=== PATIENT | female | born 1970 | race Hispanic/Latino ===

== ENCOUNTER → 2020-02-14 12:33 | Outpatient (CLI) | payer OTHER, SELFPAY ==
--- NOTE | 2020-02-14 13:00 | MRI_ITS ---
STUDY: MRI RIGHT SHOULDER REASON FOR EXAM: Female, 49 years old. RIGHT shoulder sprain, injury. Pain with movement TECHNIQUE: Standardized fat and water weighted pulse sequences were obtained in all 3 orthogonal planes. COMPARISON: None. FINDINGS: Moderate supraspinatus and infraspinatus tendinosis and peritendinitis as with a 1 x 1 cm full-thickness tear of the distal mid supraspinatus tendon proximal to the footprint. There is subscapularis tendinosis with tendon thickening, but without a demonstrated tendon tear. Normal teres minor tendon. Moderate volumetric or fatty atrophy of the supraspinatus muscle. Normal infraspinatus muscle. Normal subscapularis muscle. Normal teres minor muscle. Normal glenohumeral articulation. There is a cortical erosion at the insertion of the infraspinatus tendon. Normal biceps labral complex. There is tendinosis with thickening of the biceps tendon, but without a demonstrated tear. Normal labrum. Normal capsulo- ligamentous complex. Normal rotator interval. There is moderate osteoarthritis of the acromioclavicular articulations. There is a Type II morphology (curved), with a neutral orientation. There is no subacromial-subdeltoid bursal fluid. Normal visualized coracohumeral and coracoacromial ligaments. Normal quadrilateral space. Normal axillary space. Normal deltoid muscle. Normal trapezius muscle. MRI/Upper Ext Joint Only(Routine) IMPRESSION: Moderate supraspinatus and infraspinatus tendinosis and peritendinitis as with a 1 x 1 cm full-thickness tear of the distal mid supraspinatus tendon proximal to the footprint with moderate volumetric and fatty atrophy of the supraspinatus muscle. Electronically Signed: Robe Turner MD at 14:46 EDT Tel , Service support ,
== END ==
PROVIDERS: Referring Provider Family Medicine; Visit Provider Family Medicine
DX: S43.401A Unspecified sprain of right shoulder joint, initial encounter (principal); M65.811 Other synovitis and tenosynovitis, right shoulder
CPT/HCPCS: 73221

== ENCOUNTER → 2020-05-05 15:49 | Outpatient (CLI) | payer OTHER, SELFPAY ==
--- NOTE | 2020-05-05 15:50 | RAD_ITS ---
STUDY: X-RAY - RIGHT SHOULDER REASON FOR EXAM: Pain. TECHNIQUE: 4 view(s) of the shoulder. COMPARISON: MRI images 02/14/2020. FINDINGS: Normal glenohumeral articulation. There is acromioclavicular arthrosis. Normal acromion. Normal humeral head and visualized proximal humerus. There is a small focus of calcific tendinitis. Normal visualized pulmonary apex. RAD/Shoulder min 2 Views IMPRESSION: Small focus of calcific tendinitis. Acromioclavicular arthrosis. Electronically Signed: Jose Miguel Trivedi MD at 8:23 EDT Tel , Service support ,
== END ==
PROVIDERS: Referring Provider Orthopaedic Surgery; Visit Provider Orthopaedic Surgery
DX: S46.911A Strain of unspecified muscle, fascia and tendon at shoulder and upper arm level, right arm, initial encounter (principal); X58.XXXA Exposure to other specified factors, initial encounter; M19.011 Primary osteoarthritis, right shoulder
CPT/HCPCS: 73030

== ENCOUNTER 2020-10-21 05:43 | Day surgery (SDC) | payer OTHER, SELFPAY ==
[2020-10-21] VITALS (12 sets, daily range): BP systolic 110–126; BP diastolic 58–77; PULSE 56–82; RESP 16–18; TEMP 36.1–36.8; O2SAT 94–100; BMI 30.1
[2020-10-21] MEDS: Lactated Ringers 1,000 ML 100 ML IV (06:25)
[2020-10-21] MEDS: Cefazolin 2 GM in 0.9% Normal Saline 100 ML IV (07:34)
--- NOTE | 2020-10-21 07:41 | PCM.DC.ORTHO ---
Discharge Diet: No Restrictions - keep dressing intact, call with concerns, do not remove sling, follow up on monday with elias for dressing change and brace adjustment Discharge Activity: May Not Drive May shower in (days): 1 Ice area for (Minutes): 20 - Every hour while awake. Weight Bearing Status: Weight bearing as tolerated Keep extremity elevated above heart level: Operative Extremity Call your doctor if your incision/area has: Continuous Slow Oozing, Sudden Increased Bleeding, Increased Pain/ Swelling, Increased Redness, Foul Smelling Discharge Call your doctor if you observe: Fever of 101 or Higher, Coldness, Increased Pain, Numbness or Tingling, Change in Color, Calf discomfort Allergies/Adverse Reactions: Allergies No Known Allergies Allergy (Verified 10/21/20 06:07) Medications to take at Discharge Oxycodone [Oxyir] 5 mg PO Q4H PRN PRN 5 Days #60 tab 10/21/20 Zolpidem Tartrate [Ambien (Generic)] 5 mg PO QHS PRN PRN #14 tab 10/21/20 The following prescriptions were given: Zolpidem Tartrate [Ambien (Generic)] 5 mg PO QHS PRN PRN #14 tab PRN Reason: Insomnia Transmission Status: Received by [facility] Oxycodone [Oxyir] 5 mg PO Q4H PRN PRN 5 Days #60 tab PRN Reason: Pain Transmission Status: Received by [facility] Primary Care Physician: Care Physician,No Primary [Primary Care Provider] - Test Results: Test results from this visit will be discussed in further detail at your follow-up appointment, if applicable. Please Follow Up With: Richelle Anthony, DO - [phone]
--- NOTE | 2020-10-21 07:41 | PCM.OPRPT ---
Report of Operation Date of Procedure: 10/21/20 Pre-Operative Diagnosis: right shoulder rotator cuff tear, subacromial impingment syndrome, biceps tendinosis Post-Operative Diagnosis: same Surgery/Procedure Performed:: sars, rc repair, sad/acromioplasty, biceps debridement- subscap and supra associate professor of surgery: Vinod Galvan Type of Anesthesia:: General/Regional Anesthesiologist: Parminder Freeman Estimated Blood Loss (mL): min Fluids Replaced: see chart Description of Procedure: Preop note Patient is a 49-year-old female with continued pain of her right shoulder after an incident while she was trying to lift something. Failed conservative treatment options patient elected proceed with right shoulder arthroscopy. Indicated. Risk benefits and alternatives were discussed patient. Risk include but not limited to blood loss, blood clot, infection, neurovascular, failure procedure, loss of life and loss of limb. Patient is aware like to proceed with right shoulder arthroscopy repair as indicated. Rosie Galvan We discussed the current risk associated COVID-19. While it is understood that there is a community spread of COVID 19 the risk of helen COVID-19 while at [facility] is very low, however, the risk cannot be completely mitigated because of the community spread of the disease. We discussed in detail the risk of exposure to and or potential harm posed by the COVID-19 virus with having a surgery/procedure at this time versus the risk of delaying the surgery/procedure. Is not possible to know either the risk of delaying the surgery procedure or chance of getting an infection with perfect accuracy, but a joint decision was made to proceed at this time with a schedule surgery/procedure as indicated on the consent form. Patient was notified that we will need to comply with any screening or testing [facility] wishes to perform or that surgery may be delayed for any positive results. Operative note Patient seen and examined preoperative holding area. Right shoulder was marked. Patient brought to the operating placed supine on the operating table. Signed, anesthesia, antibiotics were administered. Right arm was prepped and draped in usual sterile technique after she was placed in beachchair positioning. Please note the senior living through beachchair position we did recheck her blood pressure which was stable throughout. All bony promises well-padded SCDs placed on her bilateral lower extremity We marked out our bony landmarks for portal placement the timeout was performed we then insufflated the glenohumeral joint for the posterior aspect had good return. We then used a low blade create our posterior portal. Began our diagnostic arthroscopy. The glenohumeral joint was intact. The subscap was torn off the top 1 cm leading edge. We then created anterior portal under direct visualization. We probed the biceps which was unstable was which was intact and its the biceps labral junction. There was some fraying at the insertion which was gently debrided back with a shaver. We then brought the biceps into the joint and there was no redness no streaking. We then able to visualize the rotator cuff tear which was a crescent-shaped U-shaped tear starting from the leading edge going posterior actually more of a mid body tear as the posterior aspect start with the lateral aspect of the rotator cuff at the rotator cuff footprint was intact. We then demarcated our lesser tuberosity to create placement for our swivel lock. We placed 2 fiber links through the tear of the subscap prior to that we did to gently debride back on the onset stable rotator cuff tear as well as debriding back the lesser tuberosity with a shaver and a bur to create a good bony bed for healing. After placing a 2 fiber links we then placed this down to a swivel lock that was placed in standard technique at the anatomic atomic subscap footprint. We then moved to the subacromial space. We then moved to the subacromial space. Created a lateral portal under direct visualization. She had extensive bursitis. A combination of shaver and ablator weeks we debrided back all the bursitis extending posterior especially laterally. We performed a gentle acromioplasty anterolateral as well. She had a quite stiff and it with an old questions tear again starting from the midportion of the supraspinatus and extending posteriorly. We did a couple of releases then were able to pull out below the level and then were able to mobilize it the cuff. Loaded well to marginal convergence suggested we did perform a couple marginal convergence sutures to lessen the tension of the repair. We then placed 3 bio composite's anchors on the medial bridge and then used these to further our medial convergence stitches and extending more anteriorly. After this we had good great footprint coverage potential slightly tensionless repair. We then irrigated the shoulder with copious amounts of sterile saline. Portals were closed with interrupted 4-0 nylon stitches and sterile dressings were applied. Patient taught procedure well no complication transferred recovery room in stable condition. Postoperative note Nonweightbearing right upper extremity Pharmacy has prescriptions Call with increased pain numbness tingling further issues arise Dragon disclaimer Discussed with daughter we will get pictures in 2 weeks This note was generated with [employer] dictation software. It may contain incorrect words, spelling, and punctuation that were not noted in checking the note before signing.
[2020-10-21] MEDS: Epinephrine (1 mg/ml) 1 MG/ML VIAL ×2 (08:07→09:30)
--- NOTE | 2020-10-21 10:00 | HP_ITS ---
I have re-examined the patient. There are no clinical changes since date of exam. Intake Intake Visit Reasons: right shoulder HPI right shoulder: Surgical H&P: Yes Details: Parts of this documentation were recorded by a scribe, this documentation accurately reflects the service provided and the decisions made by me, Dr. Richelle Anthony, DO 09/24/20 0943. KADI CALZADA is a 49 year old F here today for right shoulder. Her appointment is translated by Joao, # [id number]. Patient states that she does not have any pain although if she reaches backwards her pain increases. She has numbness which is bad and tries to stretch at night. She wakes with hand numbness into all of her fingers. If she tries to grab her phone, it drops onto her face. She is taking etodolac for pain.Her pain is over her posterior and superior shoulder. She has decreased shoulder range of motion due to pain. Ortho Exam Right Shoulder Skin/Wound: Yes CDI, No ecchymosis, No erythema, No swelling Testing: Positive Neer's, Speed's, TTP Biceps, Drop Arm, PROM-External Rotation at side 0-60, PROM-External Rotation at 90 0-60 and PROM-Forward Elevation 0- 180; negative Hawkin's, AROM-Forward Elevation 0-180, AROM-External Rotation at 90 0- 60 or AROM-External Rotation at side 0-60 SHOULDER: positive drop arm. neuro intact med, uln,rad nerves which is painful into shoulder Assessment & Plan Problems 1. Strain of muscle(s) and tendon(s) of the rotator cuff of right shoulder, initial encounter S46.011A 2. Biceps tendinitis on right M75.21 3. Sprain of right shoulder S43.401A 4. Infraspinatus tenosynovitis, right M65.811 Plan Explained the numbness into her hand is from her cervical spine or carpal tunnel. Explained that shoulder surgery will not help the numbness. this needs to be addressed at later date or by pcp. Reviewed the pre-operative plans with the patient. Risks and benefits of the procedure were fully explained, including but not limited to infection, neurovascular injury, continued pain, arthritis, stiffness, need for further surgery, re-injury, DVT, PE, general risks of anesthesia, and loss of limb or life. The patient understands all the risks and does wish to proceed with written consent. She will be in a sling for 6 weeks. All questions answered with the help of the educational interpreter. We discussed the current risk associated COVID-19. While it is understood that there is a community spread of COVID 19 the risk of helen COVID-19 while at [facility] is very low, however, the risk cannot be completely mitigated because of the community spread of the disease. We discussed in detail the risk of exposure to and or potential harm posed by the COVID-19 virus with having a surgery/procedure at this time versus the risk of delaying the surgery/procedure. Is not possible to know either the risk of delaying the surgery procedure or chance of getting an infection with perfect accuracy, but a joint decision was made to proceed at this time with a schedule surgery/procedure as indicated on the consent form. Patient was notified that we will need to comply with any screening or testing [facility] wishes to perform or that surgery may be delayed for any positive results. Follow up for 2 week post op appointment or sooner if pain, swelling, numbness or associated symptoms, or concerns develop. All questions answered. Patient in agreement of plan. Coding Level of Care Code Off vis,est,level 4 Diagnoses Strain of muscle(s) and tendon(s) of the rotator cuff of right shoulder, initial encounter S46.011A Biceps tendinitis on right M75.21 Sprain of right shoulder S43.401A Infraspinatus tenosynovitis, right M65.811 COVID (Procedure Consent) Procedure Criteria Procedure Criteria: Yes Elective The surgeon/proceduralist and patient have discussed in detail the risk of exposure to and/or potential harm posed by the COVID-19 virus with having a surgery/procedure at this time versus the risk of? delaying the surgery/procedure. It is not possible to know either the risk of delaying the surgery or procedure or chance of getting an infection with perfect accuracy, but a joint decision was made between the patient and the surgeon/proceduralist ?to proceed at this time with the scheduled surgery/procedure as indicated on the consent form.
[2020-10-21] MEDS: Mupirocin Ointment 22gm Tube 1 APPLIC (10:34)
--- NOTE | 2020-10-21 11:26 | EKG12_ITS ---
Test Reason : POST OP Blood Pressure : / mmHG Vent. Rate : 054 BPM Atrial Rate : 054 BPM P-R Int : 166 ms QRS Dur : 080 ms QT Int : 530 ms P-R-T Axes : 003 024 035 degrees QTc Int : 502 ms Sinus bradycardia Prolonged QT Abnormal ECG Confirmed by ROBERT ESQUIVEL, AN ([id number]), purchasing expeditor HEIDY MURPHY ([id number]) on 10/29/2020 9:16:25 AM Referred By: Richelle Anthony Confirmed By:AN JONES MD
[2020-10-21] MEDS: HYDROcodone Bitartrate/Apap 5/325 Tablet PO (13:45)
== END 2020-10-21 14:20 | disposition home or self-care (01) ==
LOC: SDC 05:44 → AC 05:45
PROVIDERS: Referring Provider Orthopaedic Surgery; Visit Provider Orthopaedic Surgery
PROC: (CPT 29827; principal; 2020-10-21 07:10)
DX: M75.101 Unspecified rotator cuff tear or rupture of right shoulder, not specified as traumatic (principal); M75.41 Impingement syndrome of right shoulder; M75.21 Bicipital tendinitis, right shoulder; S43.401A Unspecified sprain of right shoulder joint, initial encounter; M65.811 Other synovitis and tenosynovitis, right shoulder; J45.909 Unspecified asthma, uncomplicated; Z79.899 Other long term (current) drug therapy
CPT/HCPCS: 29822; 29826; 29827; 64415; 87426; 93005; C9803; J7120; C1713; J2405

== ENCOUNTER 2021-05-25 10:30 | Outpatient (RCR) | payer OTHER, SELFPAY ==
--- NOTE | 2020-12-14 14:55 | HP.PTEVAL_ITS ---
Patient's Visit Information KADI CALZADA is a 50 year old F referred to Physical Therapy by Dr. Richelle Anthony DO with a diagnosis of R shoulder RC strain s/p repair 10/21. Date of Evaluation: 12/14/20 Physical Therapist: Wilson Llamas, DPT, OCS, CSCS - Visit Plan Frequency: 2x /Week Duration: 4-6 Weeks Plan: 2x/week for 4 weeks for pool therapy per order. Please work on AAROM R shoulder to AROM as tolerated, may need some passive. Needs to relax R UE. Postural correction. Pt is very protective. Also, she does nto speak or understand Kosovan, will have a friend who is an bleach chlorinator with her adn can follow visual prompts however may require ipad clam shucking machine tender at times. - Subjective Friend with her and interprets. R shoulder hurts. 07/16 many times. Insidious onset. Sore from surgery 10/21 RCR. Doing pendulum. Pain keeps her up at night. Wakes her up. Not working , no job to go back to as she was treminated. Hard to dress self but can use L UE and it takes increased time. Spends day cleaning the house. Can't do it with R UE. - Pain R shoulder. Pain Intensity (Out of 10): 9 Pain Intensity Range: 1, 9 - Objective Walks into therapy with R arm protected adn scapula elevated but can relax to a good position when cued.. Incisions are visible adn have healed well withotu excessive scar tissue. Posture is forward head and foreward scapula. L UE aROM is normal and WFLa dn strength at 4-/5. R UE AROM flexion is 85 and abduction is 80 and limited by pain, ext rotation 40 adn IR to GT adn limtied by pain. PROM R UE 105 and abd is 92 and ext rotation is 45 adn IR 40 all limited by pain without an endfeel today. Strength in R shoulder not tested, elbow is 3+/5 with apin, wrist is 4-/5. Pt is hesitant to move it overall but can get to about 130 degrees with supine stick flexion by the time I show it to her at home. - Goals Goal 1:: Pt sleep withotu pain Goal Time Frame: 2-4 Weeks Goal 2:: AROM 145 flexion and 50 ext rotation and PSIS IR without pain Goal Time Frame: 2-4 Weeks Goal 3:: LT goals: Pt move arm to get dressed and vaccuum at home without increased pain. Goal Time Frame: 6-8 Weeks Goal 4:: Pt feel 90% back to normal Goal Time Frame: 6-8 Weeks - Rehabilitation Potential Physical Therapy Diagnosis: R shoulder pain and diminished motion. Rehabilitation Potential: Fair - Anticipated Interventions Patient/Client Instruction: Educate patient on: Condition, Plan of Care For the Purpose of:: To decrease pain, To increase ROM, To improve muscle performance and motor function Therapeutic Exercise to Include: Strength training, Postural training, In an aquatic setting, Passive ROM, Active ROM For the Purpose of:: To decrease pain, To improve muscle performance and motor function, To increase tolerance to activity/condition/position, To improve ability of physical actions for home/community/work/leisure Thank you for the opportunity to evaluate your patient. For Medicare and Medicare HMO plans, please review the plan of care and approve it. It will need to be FAXED BACK to us at [phone] for Medicare purposes. For Medicare only, by signing this I certify the plan of care. Please let me know if there are questions or concerns regarding this plan of care. Physician Signature: Date:
--- NOTE | 2021-01-14 13:55 | HP.PTREVAL_ITS ---
Dr. Richelle Anthony, DO, It has been my pleasure to treat KADI CALZADA over the last 10 visits for R shoulder RC strain s/p repair 10/21. Please see the progress note below for an update on the physical therapy plan of care! Subjective: Got pool workout in today. 7/10 pain today and most days. Sleep is interrupted at times due to pain. Is motsly comfortable 2/10 at rest. Modified dressing by herself. Chores are getting done but slow and painful. Objective/Function: AROM flexion 120 PROM 145 pain. abduction 140. ext rotation 40 and IR to side only. Strength is limited by pain in flexion, abd and ext rotation at 4-, and IR 4, bi and tri 4. Significantly better ROM but coming adriana slowly. Plan Plan: 2x/week for 4-6 weeks for. PROM,AROM flexion, abd, IR, ER adn strength of R shoulder and scap. Progress of HEP. Pt speaks very limited Turkmen but follows directions well, Rich son with her to interpret today. Continued therapy appropriate and fair prognosis. spoke to doctor office regarding more therapy. Goals Goal 1:: Pt sleep withotu pain Goal Time Frame: 2-4 Weeks Goal Progress: Progressing Goal 2:: AROM 145 flexion and 50 ext rotation and PSIS IR without pain Goal Time Frame: 2-4 Weeks Goal Progress: Progressing Goal 3:: LT goals: Pt move arm to get dressed and vaccuum at home without increased pain. Goal Time Frame: 6-8 Weeks Goal Progress: Progressing Goal 4:: Pt feel 90% back to normal Goal Time Frame: 6-8 Weeks Goal Progress: 50 Anticipated Interventions Patient/Client Instruction: Educate patient on: Condition, Plan of Care For the Purpose of:: To decrease pain, To increase ROM, To improve muscle performance and motor function Therapeutic Exercise to Include: Strength training, Postural training, In an aquatic setting, Passive ROM, Active ROM For the Purpose of:: To decrease pain, To improve muscle performance and motor function, To increase tolerance to activity/condition/position, To improve ability of physical actions for home/community/work/leisure Please do not hesitate to contact me at [phone] by phone or if you have questions or concerns regarding this new plan of care! Sincerely, Wilson Llamas, DPT, OCS, CSCS
--- NOTE | 2021-03-05 10:52 | HP.PTREVAL ---
Dr. Richelle Anthony, DO, It has been my pleasure to treat KADI CALZADA over the last 20 visits for R shoulder RC strain s/p repair 10/21. Please see the progress note below for an update on the physical therapy plan of care! Subjective: No pain at rest. sleeping well. Reaching out in front OK, reaching to side is still painful trasniently. Objective/Function: 142 AROM flexion and 110 abduction, pain at end. Ext rotation is 40 pain at end, IR is 25 at 70 abd and PSIS behind back. This is her biggest problem with function. Pain is much better in front of her and sleeping is OK. Progression is obvious but slow. Appropriate to continue therapy toward new goal with fair prognosis. Plan Plan: 2x/week x 4 weeks to work on IR stretching, continue ROM and progression of strength to doctor appointment. Needs apporval Goals Goal 1:: Pt sleep withotu pain Goal Time Frame: 2-4 Weeks Goal Progress: Goal Met Goal 2:: AROM 145 flexion and 50 ext rotation and PSIS IR without pain Goal Time Frame: 2-4 Weeks Goal Progress: Goal Met Goal 3:: LT goals: Pt move arm to get dressed and vaccuum at home without increased pain. Goal Time Frame: 6-8 Weeks Goal Progress: yes but hurts.7/10 Goal 4:: Pt feel 90% back to normal Goal Time Frame: 6-8 Weeks Goal Progress: 70 Goal 5:: ?Get hand behind back to tuck in shirt and walk back without pain greater than 3/10 Goal Time Frame: 2-4 Weeks Goal Progress: NEW GOAL Anticipated Interventions Patient/Client Instruction: Educate patient on: Condition, Plan of Care For the Purpose of:: To decrease pain, To increase ROM, To improve muscle performance and motor function Therapeutic Exercise to Include: Strength training, Postural training, In an aquatic setting, Passive ROM, Active ROM For the Purpose of:: To decrease pain, To improve muscle performance and motor function, To increase tolerance to activity/condition/position, To improve ability of physical actions for home/community/work/leisure Please do not hesitate to contact me at [phone] by phone or if you have questions or concerns regarding this new plan of care! Sincerely, Wilson Llamas, DPT, OCS, CSCS
--- NOTE | 2021-04-15 17:25 | HP.PT.NRP ---
KADI CALZADA was seen in my office for initial evaluation on 12/14/20. The following Plan of Care was established for this patient: Initial Frequency: 2x /Week Initial Duration: 4-6 Weeks Patient/Client Instruction: Educate patient on: Condition, Plan of Care For the Purpose of:: To decrease pain, To increase ROM, To improve muscle performance and motor function Therapeutic Exercise to Include: Strength training, Postural training, In an aquatic setting, Passive ROM, Active ROM For the Purpose of:: To decrease pain, To improve muscle performance and motor function, To increase tolerance to activity/condition/position, To improve ability of physical actions for home/community/work/leisure This patient was last seen in our office 03/05/21. Pertinent comments regarding their Physical therapy will appear below: Pt seen 20 visits of POC and was 70% better. She was to cotninue but did not schedule or attend any further visits. At this time, her approval has run out and she has been noncompliant with attendance. I will discontinue her as it has been over 4 weeks. At this point I will be discontinuing this patient from physical therapy. I would be happy to see this patient again in the future if found appropriate by the physician. Thank you! Wilson Llamas, DPT, OCS, CSCS
--- NOTE | 2021-04-22 10:47 | HP.PTREVAL ---
Dr. Richelle Anthony, DO, It has been my pleasure to treat KADI CALZADA over the last 21 visits for R shoulder RC strain s/p repair 10/21. Please see the progress note below for an update on the physical therapy plan of care! Subjective: A little pain. Objective/Function: 145 flexion AROM with min pain. 150 abd with min pain. 45 ext rotation with mod pain. IR to PSIS mod+ pain. strength: flex 4- adn abd 4- both with mod pain, IR/4 slight pain, ER 4 with slight pain. Very functional ROM and strength today, still painful. Overall patient is doing wella dn continues to improve. Main problems are end range IR stiffness and lacking motion and some pain/weakness at full elevation. Appropriate to cotninue with fair prognosis. Plan Plan: Pt has recently returned to doctor and recommended back for PT so her chart is reopened after the recent d/c due to nonattendance. 2x/week for 3 weeks for... elevated strengthening, IR ROM and mobs, progression of HEP. Ice as needed. Communicated with [employer] [facility] alberto today. Goals Goal 1:: Pt sleep withotu pain Goal Time Frame: 2-4 Weeks Goal Progress: Goal Met Goal 2:: AROM 145 flexion and 50 ext rotation and PSIS IR without pain Goal Time Frame: 2-4 Weeks Goal Progress: Goal Met Goal 3:: LT goals: Pt move arm to get dressed and vaccuum at home without increased pain. Goal Time Frame: 6-8 Weeks Goal Progress: yes but hurts.7/10 Goal 4:: Pt feel 90% back to normal Goal Time Frame: 6-8 Weeks Goal Progress: 70 Goal 5:: ?Get hand behind back to tuck in shirt and walk back without pain greater than 3/10 Goal Time Frame: 2-4 Weeks Goal Progress: NEW GOAL Anticipated Interventions Patient/Client Instruction: Educate patient on: Condition, Plan of Care For the Purpose of:: To decrease pain, To increase ROM, To improve muscle performance and motor function Therapeutic Exercise to Include: Strength training, Postural training, In an aquatic setting, Passive ROM, Active ROM For the Purpose of:: To decrease pain, To improve muscle performance and motor function, To increase tolerance to activity/condition/position, To improve ability of physical actions for home/community/work/leisure Please do not hesitate to contact me at [phone] by phone or if you have questions or concerns regarding this new plan of care! Sincerely, Wilson Llamas, DPT, OCS, CSCS
--- NOTE | 2021-05-25 11:21 | HP.PTDCSUM_ITS ---
It has been my pleasure to treat KADI CALZADA referred by Dr. Richelle Anthony DO, with the diagnosis of R shoulder RC strain s/p repair 10/21 for a total of 25 visit(s). Discharge Date: 05/25/21 Please see the following information for a summary of their discharge status. Subjective: Saw doctor yesterday and put on methylprednisolone. Hardto get it behing her, better overhead. Sleep is OK. 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 Hard to get arm behind her and the pain ivloved with this is what is left. Deos not think she needs more visits. R shoulder. Pain Intensity (Out of 10): 6 % Improvement: 75 Objective/Function: 150 AROM flexion and abduction. 50 eext rotation, PSIS IR aROM. Pain with putting arm behind her. strength is 4/5 in flexiona nd abd and IR, 4- ER. Mild pain with elevation resisted. Overall improved adn does not wish to have further therapy but to wait and see how meds works. Goal 1:: Pt sleep withotu pain Goal Progress: Goal Met Goal 2:: AROM 145 flexion and 50 ext rotation and PSIS IR without pain Goal Progress: Goal Met Goal 3:: LT goals: Pt move arm to get dressed and vaccuum at home without inc reased pain. Goal Progress: not behind her. Goal 4:: Pt feel 90% back to normal Goal Progress: 75% Goal 5:: ?Get hand behind back to tuck in shirt and walk back without pain greater than 3/10 Goal Progress: Not Progressing Plan: d/c If there are questions or concerns regarding this patient's physical therapy, please feel free to call me at [phone]. Thank you for the referral of this patient. Sincerely, Wilson Llamas, DPT, OCS, CSCS
== END 2021-05-25 12:45 | disposition home or self-care (01) ==
LOC: PT 10:30
PROVIDERS: Referring Provider Orthopaedic Surgery; Visit Provider Orthopaedic Surgery
DX: S46.011D Strain of muscle(s) and tendon(s) of the rotator cuff of right shoulder, subsequent encounter (principal)
CPT/HCPCS: 97110; 97113; 97161; 97164; 97530

== ENCOUNTER 2021-11-09 10:00 | Outpatient (RCR) | payer OTHER, SELFPAY ==
--- NOTE | 2021-08-11 10:35 | HP.PTEVAL_ITS ---
Patient's Visit Information KADI CALZADA is a 50 year old F referred to Physical Therapy by DANDRE Garcia with a diagnosis of R rotator cuff repair 10/25. Date of Evaluation: 08/11/21 Physical Therapist: Reynaldo Mckenzie PT, ATC - Visit Plan Frequency: 2-3x /Week Duration: 4-6 Weeks Plan: R shoulder AROM ex's, rotator cuff strengthening, scap stab ex's, UBE, and HEP - Subjective DOS: 10/21/21. Pt has R rotator cuff repair performed at that time. Pt had her f/u with her surgeon approximately 2 weeks ago where he was pleased with her ROM. Pt has been using a dynasplint while at home and has increased her ROM to a reasonable extent at this time. Pt reports she is still limited with IR at this time. Pt reports her physician really wants for her to continue with dynasplint at home, but to come here to [facility] at this time to initiate some strenthening for her R shoulder. Pt reports she is to follow up again with her doctor in 6 weeks. Pt reports she has tingling and numbness in R UE at all times. Pt reports sleep difficulty secondary to pain. Pt is R hand dominant. 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 Pt reports her pain is 3/10 at rest, 8/10 at worst (when she is trying to sleep) - Pain R shoulder Pain Intensity (Out of 10): 3 Pain Intensity Range: 8 - Objective Neuro: R UE is hyposensitive to light touch throughout. L UE is WNL to light touch. Observation: No obvious deformities at this time. Incisions fully healed. ROM: L shoulder flex= 165, abd= 160, ER= 50, IR WNL; R shoulder flex= 100, abd= 70, ER= -10, IR severely limited. MMT: L UE is now 5/5 throughout. R UE is grossly 3-/5 and painful with all motions - Balance/Special Test Scores Quick DASH Score: 72.7250 - Goals Goal 1:: Decrease R shoulder pain x 50% to aid with sleep Goal Time Frame: 4-6 Weeks Goal 2:: Increase R shoulder flex and abd ROM x 30 degrees to aid with overhead lifing Goal Time Frame: 4-6 Weeks Goal 3:: Increase R shoulder strength x 1 grade to aid with work requirements Goal Time Frame: 4-6 Weeks Goal 4:: I with HEP Goal Time Frame: 4-6 Weeks - Rehabilitation Potential Physical Therapy Diagnosis: Pt has R shoulder pain, weakness, and limited ROM secondary to s/p R rot cuff repair Rehabilitation Potential: Good - Anticipated Interventions Patient/Client Instruction: Educate patient on: Condition, Plan of Care For the Purpose of:: To improve self management Therapeutic Exercise to Include: Strength training, Endurance training, Flexibilty training, Active ROM, Scapular Strength/Stabilization For the Purpose of:: To decrease pain, To increase ROM, To improve muscle performance and motor function Cryotherapy (ice pack, ice massage): Yes For the Purpose of:: To decrease pain Thank you for the opportunity to evaluate your patient. For Medicare and Medicare HMO plans, please review the plan of care and approve it. It will need to be FAXED BACK to us at [phone] for Medicare purposes. For Medicare only, by signing this I certify the plan of care. Please let me know if there are questions or concerns regarding this plan of care. Physician Signature: Date:
--- NOTE | 2021-10-12 10:05 | HP.PTREVAL ---
DANDRE Garcia, It has been my pleasure to treat KADI CALZADA over the last 2 visits for R rotator cuff repair 10/25. Please see the progress note below for an update on the physical therapy plan of care! Subjective: Pt reports she has returned now after using the dynasplint at home. Pt notes she had more pain with the splint. Pt also notes her boss has informed her that she is to return to work at this time after being discharged by her doctor, even though the patient has not seen the doctor Objective/Function: R shoulder pain level is 5/10. R shoulder ROM: flex= 120, abd= 95, ER= 0. MMT: R shoulder is 4-/5 in her available ROM and is painful with all testing Plan Plan: Begin strengthening the rotator cuff at this time Balance/Gait/Functional tests - Balance/Special Test Scores Quick DASH Score: 68.1800 Goals Goal 1:: Decrease R shoulder pain x 50% to aid with sleep Goal Time Frame: 4-6 Weeks Goal Progress: Not Progressing Goal 2:: Increase R shoulder flex and abd ROM x 30 degrees to aid with overhead lifing Goal Time Frame: 4-6 Weeks Goal Progress: Progressing Goal 3:: Increase R shoulder strength x 1 grade to aid with work requirements Goal Time Frame: 4-6 Weeks Goal Progress: Not Progressing Goal 4:: I with HEP Goal Time Frame: 4-6 Weeks Goal Progress: Progressing Anticipated Interventions Patient/Client Instruction: Educate patient on: Condition, Plan of Care For the Purpose of:: To improve self management Therapeutic Exercise to Include: Strength training, Endurance training, Flexibilty training, Active ROM, Scapular Strength/Stabilization For the Purpose of:: To decrease pain, To increase ROM, To improve muscle performance and motor function Cryotherapy (ice pack, ice massage): Yes For the Purpose of:: To decrease pain Please do not hesitate to contact me at [phone] by phone or if you have questions or concerns regarding this new plan of care! Sincerely, Reynaldo Mckenzie, PT, ATC
--- NOTE | 2021-11-09 10:43 | HP.PTDCSUM ---
It has been my pleasure to treat KADI CALZADA referred by DANDRE Garcia, with the diagnosis of R rotator cuff repair 10/25 for a total of 9 visit(s). Discharge Date: Please see the following information for a summary of their discharge status. Subjective: Pt reports she thinks she is doing well and doesnt need more PT R shoulder Pain Intensity (Out of 10): 0 % Improvement: 80 Objective/Function: Pt reports no difficulty with sleep, IADL's, or work requirements. 0/10 pain at this time and not taking any meds. R shoulder ROM: flex= 160, abd= 140. R shoulder MMT: flex= 4+/5. All other B UE measurements 5/5 throughout. Pt is I with HEP. Pt has achieved all Rx goals Goal 1:: Decrease R shoulder pain x 50% to aid with sleep Goal Progress: Goal Met Goal 2:: Increase R shoulder flex and abd ROM x 30 degrees to aid with overhead lifing Goal Progress: Goal Met Goal 3:: Increase R shoulder strength x 1 grade to aid with work requirements Goal Progress: Goal Met Goal 4:: I with HEP Goal Progress: Goal Met Plan: Discharge If there are questions or concerns regarding this patient's physical therapy, please feel free to call me at [phone]. Thank you for the referral of this patient. Sincerely, Reynaldo Mckenzie, PT, ATC Balance/Gait/Functional tests - Balance/Special Test Scores Quick DASH Score: 13.6350
== END 2021-11-09 19:00 | disposition home or self-care (01) ==
LOC: PT 10:00
PROVIDERS: Referring Provider Physician Assistant; Visit Provider Physician Assistant
DX: Z98.890 Other specified postprocedural states (principal)
CPT/HCPCS: 97110; 97161; 97164

== ENCOUNTER 2024-07-26 15:30 | Outpatient (RCR) | payer OTHER, SELFPAY | END 2024-07-26 19:00 | disposition home or self-care (01) | LOC: PT 15:30 | PROVIDERS: Visit Provider Orthopaedic Surgery Sports Medicine | DX: M25.511 Pain in right shoulder (principal); Z98.890 Other specified postprocedural states | CPT/HCPCS: 97014; 97035; 97110; 97140; 97162; 97530; G0283 ==

== ENCOUNTER → 2024-09-10 | Outpatient (CLI) | payer OTHER, SELFPAY ==
--- NOTE | 2024-09-10 09:50 | MRI_ITS ---
STUDY: MRI RIGHT SHOULDER REASON FOR EXAM: Female, 53 years old. Pain. TECHNIQUE: Standardized fat and water weighted pulse sequences were obtained in all 3 orthogonal planes. COMPARISON: Right shoulder MRI dated 02/14/2020. FINDINGS: There are postoperative changes related to prior rotator cuff repair surgery, with new anchors in the humeral head. There is supraspinatus, infraspinatus, and subscapularis tendinosis without a full-thickness tear. Normal teres minor tendon. There is minimal atrophy and fatty infiltration of the supraspinatus and infraspinatus muscles. Normal subscapularis muscle. Normal teres minor muscle. Normal glenohumeral articulation. Intact humeral head and visualized proximal humerus. Normal biceps labral complex. Normal intracapsular long biceps tendon. Normal labrum. Normal capsulo-ligamentous complex. Normal rotator interval. There is hypertrophic acromioclavicular arthrosis, with inferior osteophyte formation, with mild effacement of the supraspinatus myotendinous junction (coronal T2 series 6 images 12-14). There is a Type II morphology (curved), with a neutral orientation. There is trace subacromial-subdeltoid bursal fluid. Normal visualized coracohumeral and coracoacromial ligaments. Normal quadrilateral space. Normal axillary space. Normal deltoid muscle. Normal trapezius muscle. MRI/Upper Ext Joint Only(Routine) IMPRESSION: Supraspinatus, infraspinatus, and subscapularis tendinosis without a full-thickness rotator cuff tear. Minimal atrophy and fatty infiltration of the supraspinatus and infraspinatus muscles. Hypertrophic acromioclavicular arthrosis, with inferior osteophyte formation, with mild effacement of the supraspinatus myotendinous junction. Minimal subacromial-subdeltoid bursitis. Electronically Signed: Fabricio Cabrera MD at 12:28 EST ,
--- OUTSIDE RECORDS SUMMARY | 2024-09-10 11:56 | XMS RPT_ITS | CCD ---
Author Organization [facility] Team Providers Care Runner On Name Role Phone GUILLERMO CLARK MD Primary Care Physician [phone] SRINIVASAN MOONEY DO Primary Care Physician Medications Current Medications Medication Drug Class(es) Dates Sig (Normalized) Sig (Original) benzonatate 100 mg oral capsule (1 source) Non-narcotic Antitussive Start: 12-10-2021 End: 12-17-2021 Tessalon Perles 100 mg oral capsule Dose : 100 mg = 1 cap(s), Oral, TID, X 7 day(s), # 21 cap(s), 0 Refill(s), 12/17/21 13:19:00 EST, Cough Start Date: 12/10/21 Stop Date: 12/17/21 Status: Ordered cefdinir 300 mg oral capsule (1 source) Cephalosporin Antibacterial Start: 03-11-2022 End: 03-21-2022 cefdinir 300 mg oral capsule Dose : 300 mg = 1 cap(s), Oral, q12h, X 10 day(s), # 20 cap(s), 0 Refill(s), 03/21/22 11:24:00 EDT, Ear pain Otitis media, purulent, 79.8 Start Date: 03/11/22 Stop Date: 03/21/22 Status: Ordered Ibuprofen (1 source) Nonsteroidal Anti-inflammatory Drug Start: 03-11-2022 ibuprofen 0 Refill(s) Start Date: 03/11/22 Status: Ordered predniSONE 20 mg oral tablet (1 source) Start: 12-10-2021 End: 12-14-2021 predniSONE 20 mg oral tablet Dose : 60 mg = 3 tab(s), Oral, qDay, X 4 day(s), # 12 tab(s), 0 Refill(s), 12/14/21 13:19:00 EST, Cough Start Date: 12/10/21 Stop Date: 12/14/21 Status: Ordered Problems Problem Classification Problem Date Documented Date Episodic/Chronic Allergic reactions (1 source) Environmental allergy 03-11-2022 Episodic Asthma (1 source) Asthma 01-23-2015 Chronic Conditions associated with dizziness or vertigo (1 source) Postural dizziness 03-11-2022 Episodic Other lower respiratory disease (1 source) Cough; Translations: [Cough, unspecified] Onset: 12-10-2021 Episodic Other nervous system disorders (1 source) Numbness of hand 03-11-2022 Episodic Other non-traumatic joint disorders (1 source) Shoulder pain 03-11-2022 Episodic Other nutritional; endocrine; and metabolic disorders (1 source) Obese class I 03-11-2022 Chronic Otitis media and related conditions (1 source) Purulent otitis media 03-11-2022 Episodic Residual codes; unclassified (1 source) Flushing 03-11-2022 Episodic Residual codes; unclassified (1 source) History of arthroscopic procedure on shoulder 03-11-2022 Episodic Residual codes; unclassified (1 source) Intolerant of cold 03-11-2022 Episodic Unclassified (1 source) Main spoken language Croatian 03-11-2022 Results Test Name Value Interpretation Reference Range Facility [id number] 03-21-2022 Vitamin B6 Lvl 102.1 nmol/L Normal 20.0-125.0 [facility] ([place]) Comment on above: Result Comment: INTE RPRETIVE INFORMATION: Vitamin B6 (Pyridoxal 5-Phosphate) Pyridoxal 5'-phosphate measured in a specimen collected following an 8-hour or overnight fast accurately indicates vitamin B6 nutritional status. Non-fasting specimen concentration reflects recent vitamin intake. This test was developed and its performance characteristics determined by [facility]. It has not been cleared or approved by the [place] Food and Drug Administration. This test was performed in a CLIA certified laboratory and is intended for clinical purposes. Performed By: [facility] [address] [place] [id number] Special Needs Teacher: Radha Whitmore MD Performed By: #### C OVD19 #### [place] [address] .Auto Diffon 03-14-2022 Basophil, Absolute 0.00 10 3/mcL Normal 0.00-0.19 [facility] ([place]) Comment on above: Performed By: #### C BC, ADIFF, ANEU, CMP, LIPID, GFR, TSH, FT4, A1C, VITB6 #### [place] [address] #### B12, HCV1 #### [address] [address] Basophils/100 WBC (Bld) 0.6 % Normal 0.0-2.5 [facility] ([place]) Comment on above: Performed By: #### C BC, ADIFF, ANEU, CMP, LIPID, GFR, TSH, FT4, A1C, VITB6 #### [place] [address] #### B12, HCV1 #### [address] [address] Eosinophil, Absolute 0.20 10 3/mcL Normal 0.00-0.40 [facility] ([place]) Comment on above: Performed By: #### C BC, ADIFF, ANEU, CMP, LIPID, GFR, TSH, FT4, A1C, VITB6 #### [place] [address] #### B12, HCV1 #### [address] [address] Eosinophils/100 WBC (Bld) 2.9 % Normal 0.0-7.0 [facility] ([place]) Comment on above: Performed By: #### C BC, ADIFF, ANEU, CMP, LIPID, GFR, TSH, FT4, A1C, VITB6 #### [place] [address] #### B12, HCV1 #### [address] [address] Lymphocyte, Absolute 2.30 10 3/mcL Normal 0.77-3.85 [facility] ([place]) Comment on above: Performed By: #### C BC, ADIFF, ANEU, CMP, LIPID, GFR, TSH, FT4, A1C, VITB6 #### [address] [address] #### B12, HCV1 #### [address] [address] Lymphocytes/100 WBC (Bld) 30.0 % Normal 10.0-50.0 [facility] ([place]) Comment on above: Performed By: #### C BC, ADIFF, ANEU, CMP, LIPID, GFR, TSH, FT4, A1C, VITB6 #### [address] [address] #### B12, HCV1 #### [address] [address] Monocyte, Absolute 0.50 10 3/mcL Normal 0.15-1.00 [facility] ([place]) Comment on above: Performed By: #### C BC, ADIFF, ANEU, CMP, LIPID, GFR, TSH, FT4, A1C, VITB6 #### [address] [address] #### B12, HCV1 #### [address] [address] Monocytes/100 WBC (Bld) 7.1 % Normal 1.7-13.0 [facility] ([place]) Comment on above: Performed By: #### C BC, ADIFF, ANEU, CMP, LIPID, GFR, TSH, FT4, A1C, VITB6 #### [address] [address] #### B12, HCV1 #### [address] [address] Neutrophils/100 WBC (Bld) 59.4 % Normal 37.0-80.0 [facility] ([place]) Comment on above: Performed By: #### C BC, ADIFF, ANEU, CMP, LIPID, GFR, TSH, FT4, A1C, VITB6 #### [address] [address] #### B12, HCV1 #### [address] [address] .GFRon 03-14-2022 GFR 133 ml/min/1.73sqm Normal [facility] ([place]) Comment on above: Result Comment: GFR Population mean for , Non- Americans Ages 20-29 = 116 mL/min/1.73 sq.m. Ages 30-39 = 107 mL/min/1.73 sq.m. Ages 40-49 = 99 mL/min/1.73 sq.m. Ages 50-59 = 93 mL/min/1.73 sq.m. Ages 60-69 = 85 mL/min/1.73 sq.m. Ages 70+ = 75 mL/min/1.73 sq.m. Chronic Kidney Disease: Less than 60 mL/min/1.73 square meters End Stage Renal Disease: Less than 15 mL/min/1.73 square meters Performed By: #### C BC, ADIFF, ANEU, CMP, LIPID, GFR, TSH, FT4, A1C, VITB6 #### [address] [address] #### B12, HCV1 #### [place] [address] GFR Non- 110 ml/min/1.73sqm Normal [facility] ([place]) Comment on above: Result Comment: GFR Population mean for , Non- Americans Ages 20-29 = 116 mL/min/1.73 sq.m. Ages 30-39 = 107 mL/min/1.73 sq.m. Ages 40-49 = 99 mL/min/1.73 sq.m. Ages 50-59 = 93 mL/min/1.73 sq.m. Ages 60-69 = 85 mL/min/1.73 sq.m. Ages 70+ = 75 mL/min/1.73 sq.m. Chronic Kidney Disease: Less than 60 mL/min/1.73 square meters End Stage Renal Disease: Less than 15 mL/min/1.73 square meters Performed By: #### C BC, ADIFF, ANEU, CMP, LIPID, GFR, TSH, FT4, A1C, VITB6 #### [address] [address] #### B12, HCV1 #### [address] [address] .NEUABSon 03-14-2022 Neutrophil, Absolute 4.50 10 3/mcL Normal 2.85-6.16 [facility] ([place]) Comment on above: Performed By: #### C BC, ADIFF, ANEU, CMP, LIPID, GFR, TSH, FT4, A1C, VITB6 #### [place] [address] #### B12, HCV1 #### [place] [id number] A1Con 03-14-2022 HbA1c (Bld) [Mass fraction] 5.8 % Normal 4.3-6.4 [facility] ([place]) Comment on above: Performed By: #### C OVD19 #### [address] [address] B12on 03-14-2022 Cobalamin (Vitamin B12) [Mass/Vol] 1202 pg/mL High 211-911 [facility] ([place]) Comment on above: Performed By: #### C OVD19 #### [place] [address] CBCon 03-14-2022 Erythrocyte distribution width (RBC) [Ratio] 13.7 % Normal 11.5-14.5 [facility] ([place]) Comment on above: Performed By: #### C BC, ADIFF, ANEU, CMP, LIPID, GFR, TSH, FT4, A1C, VITB6 #### [place] [address] #### B12, HCV1 #### [place] [address] Hematocrit (Bld) [Volume fraction] 37.7 % Normal 37.0-47.0 [facility] ([place]) Comment on above: Performed By: #### C BC, ADIFF, ANEU, CMP, LIPID, GFR, TSH, FT4, A1C, VITB6 #### [place] [address] #### B12, HCV1 #### [place] [address] Hgb 12.6 G/dL Normal 12.0-16.0 [facility] ([place]) Comment on above: Performed By: #### C BC, ADIFF, ANEU, CMP, LIPID, GFR, TSH, FT4, A1C, VITB6 #### [address] [address] #### B12, HCV1 #### [place] [address] MCH (RBC) [Entitic mass] 29.0 pg Normal 27.0-31.2 [facility] ([place]) Comment on above: Performed By: #### C BC, ADIFF, ANEU, CMP, LIPID, GFR, TSH, FT4, A1C, VITB6 #### [place] [address] #### B12, HCV1 #### [place] [address] MCHC 33.3 G/dL Normal 33.0-37.0 [facility] ([place]) Comment on above: Performed By: #### C BC, ADIFF, ANEU, CMP, LIPID, GFR, TSH, FT4, A1C, VITB6 #### [place] [address] #### B12, HCV1 #### [place] [address] MCV (RBC) [Entitic vol] 86.9 fL Normal 80.0-94.0 [facility] ([place]) Comment on above: Performed By: #### C BC, ADIFF, ANEU, CMP, LIPID, GFR, TSH, FT4, A1C, VITB6 #### [place] [address] #### B12, HCV1 #### [place] [address] Platelet 193 10 3/mcL Normal 130-400 [facility] ([place]) Comment on above: Performed By: #### C BC, ADIFF, ANEU, CMP, LIPID, GFR, TSH, FT4, A1C, VITB6 #### [place] [address] #### B12, HCV1 #### [place] [address] Platelet mean volume (Bld) [Entitic vol] 10.5 fL High 7.4-10.4 [facility] ([place]) Comment on above: Performed By: #### C BC, ADIFF, ANEU, CMP, LIPID, GFR, TSH, FT4, A1C, VITB6 #### [place] [address] #### B12, HCV1 #### [place] [address] RBC 4.34 10 6/mcL Normal 4.20-5.40 [facility] ([place]) Comment on above: Performed By: #### C BC, ADIFF, ANEU, CMP, LIPID, GFR, TSH, FT4, A1C, VITB6 #### [place] [address] #### B12, HCV1 #### [place] [address] WBC 7.60 10 3/mcL Normal 4.60-10.80 [facility] ([place]) Comment on above: Performed By: #### C BC, ADIFF, ANEU, CMP, LIPID, GFR, TSH, FT4, A1C, VITB6 #### [place] [address] #### B12, HCV1 #### [place] [address] CMPon 03-14-2022 Albumin Level 3.8 G/dL Normal 3.5-5.0 [facility] ([place]) Comment on above: Performed By: #### C BC, ADIFF, ANEU, CMP, LIPID, GFR, TSH, FT4, A1C, VITB6 #### [place] [address] #### B12, HCV1 #### [place] [address] Albumin/Globulin [Mass ratio] 1.0 {ratio} Low 1.1-2.5 [facility] ([place]) Comment on above: Performed By: #### C BC, ADIFF, ANEU, CMP, LIPID, GFR, TSH, FT4, A1C, VITB6 #### [address] [address] #### B12, HCV1 #### [address] [address] ALP [Catalytic activity/Vol] 84 U/L Normal 40-135 [facility] ([place]) Comment on above: Performed By: #### C BC, ADIFF, ANEU, CMP, LIPID, GFR, TSH, FT4, A1C, VITB6 #### [place] [address] #### B12, HCV1 #### [address] [address] ALT [Catalytic activity/Vol] 27 U/L Normal 14-59 [facility] ([place]) Comment on above: Performed By: #### C BC, ADIFF, ANEU, CMP, LIPID, GFR, TSH, FT4, A1C, VITB6 #### [place] [address] #### B12, HCV1 #### [address] [address] AST [Catalytic activity/Vol] 6 U/L Low 10-40 [facility] ([place]) Comment on above: Performed By: #### C BC, ADIFF, ANEU, CMP, LIPID, GFR, TSH, FT4, A1C, VITB6 #### [place] [address] #### B12, HCV1 #### [place] [address] Bili Total 0.5 mg/dL Normal 0.2-1.0 [facility] ([place]) Comment on above: Result Comment: Use of this assay is not recommended for patients undergoing treatment with eltrombopag due to the potential for falsely elevated results. Performed By: #### C BC, ADIFF, ANEU, CMP, LIPID, GFR, TSH, FT4, A1C, VITB6 #### [address] [address] #### B12, HCV1 #### [address] [address] BUN/Creatinine Ratio 28 ratio High 7-27 [facility] ([place]) Comment on above: Performed By: #### C BC, ADIFF, ANEU, CMP, LIPID, GFR, TSH, FT4, A1C, VITB6 #### [place] [address] #### B12, HCV1 #### [address] [address] Calcium [Mass/Vol] 8.6 mg/dL Normal 8.4-10.2 [facility] ([place]) Comment on above: Performed By: #### C BC, ADIFF, ANEU, CMP, LIPID, GFR, TSH, FT4, A1C, VITB6 #### [place] [address] #### B12, HCV1 #### [address] [address] Chloride [Moles/Vol] 103 mmol/L Normal 98-107 [facility] ([place]) Comment on above: Performed By: #### C BC, ADIFF, ANEU, CMP, LIPID, GFR, TSH, FT4, A1C, VITB6 #### [place] [address] #### B12, HCV1 #### [address] [address] CO2 [Moles/Vol] 28 mmol/L Normal 22-29 [facility] ([place]) Comment on above: Performed By: #### C BC, ADIFF, ANEU, CMP, LIPID, GFR, TSH, FT4, A1C, VITB6 #### [place] [address] #### B12, HCV1 #### [address] [address] Creatinine [Mass/Vol] 0.58 mg/dL Normal 0.55-1.02 [facility] ([place]) Comment on above: Performed By: #### C BC, ADIFF, ANEU, CMP, LIPID, GFR, TSH, FT4, A1C, VITB6 #### [address] [address] #### B12, HCV1 #### [address] [address] Electrolyte Balance 9.0 mEq/L Normal 4.0-15.0 Counts include 234 beds at the [facility] ([place]) Comment on above: Performed By: #### C BC, ADIFF, ANEU, CMP, LIPID, GFR, TSH, FT4, A1C, VITB6 #### [place] [address] #### B12, HCV1 #### [address] [address] Globulin 3.7 G/dL Normal [facility] ([place]) Comment on above: Performed By: #### C BC, ADIFF, ANEU, CMP, LIPID, GFR, TSH, FT4, A1C, VITB6 #### [address] [address] #### B12, HCV1 #### [address] [address] Glucose [Mass/Vol] 91 mg/dL Normal 70-105 [facility] ([place]) Comment on above: Performed By: #### C BC, ADIFF, ANEU, CMP, LIPID, GFR, TSH, FT4, A1C, VITB6 #### [address] [address] #### B12, HCV1 #### [address] [address] Potassium [Moles/Vol] 4.1 mmol/L Normal 3.5-5.1 [facility] ([place]) Comment on above: Performed By: #### C BC, ADIFF, ANEU, CMP, LIPID, GFR, TSH, FT4, A1C, VITB6 #### [address] [address] #### B12, HCV1 #### [place] [address] Sodium [Moles/Vol] 140 mmol/L Normal 136-145 [facility] ([place]) Comment on above: Performed By: #### C BC, ADIFF, ANEU, CMP, LIPID, GFR, TSH, FT4, A1C, VITB6 #### [address] [address] #### B12, HCV1 #### [place] [address] Total Protein 7.5 G/dL Normal 6.4-8.2 [facility] ([place]) Comment on above: Performed By: #### C BC, ADIFF, ANEU, CMP, LIPID, GFR, TSH, FT4, A1C, VITB6 #### [place] [address] #### B12, HCV1 #### [place] [address] Urea nitrogen [Mass/Vol] 16 mg/dL Normal 7-18 [facility] ([place]) Comment on above: Performed By: #### C BC, ADIFF, ANEU, CMP, LIPID, GFR, TSH, FT4, A1C, VITB6 #### [place] [address] #### B12, HCV1 #### [place] [address] FT4on 03-14-2022 Free T4 [Mass/Vol] 0.99 ng/dL Normal 0.76-1.46 [facility] ([place]) Comment on above: Performed By: #### C BC, ADIFF, ANEU, CMP, LIPID, GFR, TSH, FT4, A1C, VITB6 #### [place] [address] #### B12, HCV1 #### [place] [address] HCVon 03-14-2022 Hep C Ab Non-Reactive Normal Non-Reactive [facility] ([place]) Comment on above: Performed By: #### C OVD19 #### [address] [place] [address] Hep C Ab Int Normal [facility] ([place]) Comment on above: Result Comment: Nonr eactive: Samples with a value < 0.80 are considered nonreactive (negative) for antibodies to HCV. A negative test result does not exclude the possibility of exposure to or infection with HCV. HCV antibodies may be undetectable in some stages of the infection and in some clinical conditions. See Interp Performed By: #### C OVD19 #### [address] [address] LABORATORYOrdered By: Ltaha Watson on 03-14-2022 Albumin BCP dye [Mass/Vol] 3.8 G/dL Invalid Interpretation Code 3.5 - 5.0 G/dL AO ADM SS Albumin/Globulin [Mass ratio] 1.0 {ratio} Invalid Interpretation Code 1.1 - 2.5 ratio AO ADM SS ALP [Catalytic activity/Vol] 84 U/L Invalid Interpretation Code 40 - 135 U/L AO ADM SS ALT With P-5'-P [Catalytic activity/Vol] 27 U/L Invalid Interpretation Code 14 - 59 U/L AO ADM SS AST With P-5'-P [Catalytic activity/Vol] 6 U/L Invalid Interpretation Code 10 - 40 U/L AO ADM SS Bilirubin [Mass/Vol] 0.5 mg/dL Invalid Interpretation Code 0.2 - 1.0 mg/dL AO ADM SS Calcium [Mass/Vol] 8.6 mg/dL Invalid Interpretation Code 8.4 - 10.2 mg/dL AO ADM SS Chloride [Moles/Vol] 103 mmol/L Invalid Interpretation Code 98 - 107 mmol/L AO ADM SS Cholesterol [Mass/Vol] 173 mg/dL Invalid Interpretation Code 0 - 200 mg/dL AO ADM SS Cholesterol in HDL [Mass/Vol] 63 mg/dL Invalid Interpretation Code 40 - 60 mg/dL AO ADM SS Cholesterol in LDL [Mass/Vol] 99 mg/dL Invalid Interpretation Code 0 - 130 mg/dL AO ADM SS CO2 [Moles/Vol] 28 mmol/L Invalid Interpretation Code 22 - 29 mmol/L AO ADM SS Creatinine [Mass/Vol] 0.58 mg/dL Invalid Interpretation Code 0.55 - 1.02 mg/dL AO ADM SS Electrolyte Balance 9.0 mEq/L Invalid Interpretation Code 4.0 - 15.0 mEq/L AO ADM SS Free T4 [Mass/Vol] 0.99 ng/dL Invalid Interpretation Code 0.76 - 1.46 ng/dL AO ADM SS Globulin 3.7 G/dL Invalid Interpretation Code AO ADM SS Glucose [Mass/Vol] 91 mg/dL Invalid Interpretation Code 70 - 105 mg/dL AO ADM SS HbA1c (Bld) [Mass fraction] 5.8 % Invalid Interpretation Code 4.3 - 6.4 % AO ADM SS Potassium [Moles/Vol] 4.1 mmol/L Invalid Interpretation Code 3.5 - 5.1 mmol/L AO ADM SS Protein [Mass/Vol] 7.5 G/dL Invalid Interpretation Code 6.4 - 8.2 G/dL AO ADM SS Sodium [Moles/Vol] 140 mmol/L Invalid Interpretation Code 136 - 145 mmol/L AO ADM SS Triglyceride [Mass/Vol] 54 mg/dL Invalid Interpretation Code 0 - 150 mg/dL AO ADM SS TSH Qn 1.84 m[IU]/L Invalid Interpretation Code 0.36 - 3.74 mcIU/mL AO ADM SS Urea nitrogen [Mass/Vol] 16 mg/dL Invalid Interpretation Code 7 - 18 mg/dL AO ADM SS Urea nitrogen/Creatinine [Mass ratio] 28 ratio Invalid Interpretation Code 7 - 27 ratio AO ADM SS LABORATORYOrdered By: Pranav Bradley on 03-14-2022 Basophil, Absolute 0.00 103/mcL Invalid Interpretation Code 0.00 - 0.19 10^3/mcL AO Auto Heme SS Basophils/100 WBC (Bld) 0.6 % Invalid Interpretation Code 0.0 - 2.5 % AO Auto Heme SS Eosinophil, Absolute 0.20 103/mcL Invalid Interpretation Code 0.00 - 0.40 10^3/mcL AO Auto Heme SS Eosinophils/100 WBC (Bld) 2.9 % Invalid Interpretation Code 0.0 - 7.0 % AO Auto Heme SS Erythrocyte distribution width (RBC) [Ratio] 13.7 % Invalid Interpretation Code 11.5 - 14.5 % AO Auto Heme SS Hematocrit (Bld) [Volume fraction] 37.7 % Invalid Interpretation Code 37.0 - 47.0 % AO Auto Heme SS Hemoglobin (Bld) [Mass/Vol] 12.6 G/dL Invalid Interpretation Code 12.0 - 16.0 G/dL AO Auto Heme SS Lymphocyte, Absolute 2.30 103/mcL Invalid Interpretation Code 0.77 - 3.85 10^3/mcL AO Auto Heme SS Lymphocytes/100 WBC (Bld) 30.0 % Invalid Interpretation Code 10.0 - 50.0 % AO Auto Heme SS MCH (RBC) [Entitic mass] 29.0 pg Invalid Interpretation Code 27.0 - 31.2 pg AO Auto Heme SS MCHC (RBC) [Mass/Vol] 33.3 G/dL Invalid Interpretation Code 33.0 - 37.0 G/dL AO Auto Heme SS MCV (RBC) [Entitic vol] 86.9 fL Invalid Interpretation Code 80.0 - 94.0 fL AO Auto Heme SS Monocyte, Absolute 0.50 103/mcL Invalid Interpretation Code 0.15 - 1.00 10^3/mcL AO Auto Heme SS Monocytes/100 WBC (Bld) 7.1 % Invalid Interpretation Code 1.7 - 13.0 % AO Auto Heme SS Neutrophil, Absolute 4.50 103/mcL Invalid Interpretation Code 2.85 - 6.16 10^3/mcL AO Auto Heme SS Neutrophils/100 WBC (Bld) 59.4 % Invalid Interpretation Code 37.0 - 80.0 % AO Auto Heme SS Platelet mean volume (Bld) [Entitic vol] 10.5 fL Invalid Interpretation Code 7.4 - 10.4 fL AO Auto Heme SS Platelets (Bld) [#/Vol] 193 103/mcL Invalid Interpretation Code 130 - 400 10^3/mcL AO Auto Heme SS RBC (Bld) [#/Vol] 4.34 106/mcL Invalid Interpretation Code 4.20 - 5.40 10^6/mcL AO Auto Heme SS WBC (Bld) [#/Vol] 7.60 103/mcL Invalid Interpretation Code 4.60 - 10.80 10^3/mcL AO Auto Heme SS LABORATORYOrdered By: SYSTEM SYSTEM on 03-14-2022 Cobalamin (Vitamin B12) [Mass/Vol] 1202 pg/mL Invalid Interpretation Code 211 - 911 pg/mL AH ADM SS GFR 133 ml/min/1.73sqm Invalid Interpretation Code AO Chemistry S GFR Non- 110 ml/min/1.73sqm Invalid Interpretation Code AO Chemistry S LABORATORYOrdered By: Jose Alfredo Carrera on 03-14-2022 Hep C Ab Non-Reactive (03/14/22 8:16 AM) Invalid Interpretation Code Non-Reactive AH ADM SS Hep C Ab Int Nonreactive: Samples with a value < 0.80 are considered nonreactive (negative) for antibodies to HCV.A negative test result does not exclude the possibility of exposure to or infection with HCV. HCV antibodies may be undetectable in some stages of the infection and in some clinical conditions. Invalid Interpretation Code Chemistry S LIPIDon 03-14-2022 Cholesterol [Mass/Vol] 173 mg/dL Normal 0-200 [facility] ([place]) Comment on above: Result Comment: Chol esterol Reference Interval: Less than 200 Desirable 200-239 Borderline high risk 240 and above High risk Performed By: #### C BC, ADIFF, ANEU, CMP, LIPID, GFR, TSH, FT4, A1C, VITB6 #### [address] [address] #### B12, HCV1 #### [address] [address] Cholesterol in HDL [Mass/Vol] 63 mg/dL High 40-60 [facility] ([place]) Comment on above: Performed By: #### C BC, ADIFF, ANEU, CMP, LIPID, GFR, TSH, FT4, A1C, VITB6 #### [address] [address] #### B12, HCV1 #### [address] [address] Cholesterol in LDL [Mass/Vol] 99 mg/dL Normal 0-130 [facility] ([place]) Comment on above: Performed By: #### C BC, ADIFF, ANEU, CMP, LIPID, GFR, TSH, FT4, A1C, VITB6 #### [address] [address] #### B12, HCV1 #### [address] [address] Triglyceride [Mass/Vol] 54 mg/dL Normal 0-150 [facility] ([place]) Comment on above: Result Comment: Trig lyceride Reference Interval: Less than 150 Normal 150-199 Borderline high risk 200-499 High risk 500 or higher Very high risk Performed By: #### C BC, ADIFF, ANEU, CMP, LIPID, GFR, TSH, FT4, A1C, VITB6 #### [address] [address] #### B12, HCV1 #### [address] [address] TSHon 03-14-2022 TSH Qn 1.84 m[IU]/L Normal 0.36-3.74 [facility] ([place]) Comment on above: Performed By: #### C BC, ADIFF, ANEU, CMP, LIPID, GFR, TSH, FT4, A1C, VITB6 #### [place] [address] #### B12, HCV1 #### [address] [address] [id number] 12-10-2021 Date of Onset [id number] Invalid Interpretation Code [facility] ([place]) Comment on above: Performed By: #### C OVD19 #### [place] [address] Employed in Healthcare [facility] ([place]) Comment on above: Performed By: #### C OVD19 #### [address] [address] First Test Unknown [facility] ([place]) Comment on above: Performed By: #### C OVD19 #### [address] [address] Hospitalized Unknown [facility] ([place]) Comment on above: Performed By: #### C OVD19 #### [address] [address] ICU No [facility] ([place]) Comment on above: Performed By: #### C OVD19 #### [place] [address] Not [facility] ([place]) Comment on above: Performed By: #### C OVD19 #### [place] [id number] Resides in Congregate Care Setting [facility] ([place]) Comment on above: Performed By: #### C OVD19 #### [address] [address] SARS-CoV-2 (COVID-19) RNA CHRISTIE+probe Ql (Unsp spec) Negative Normal Negative [facility] ([place]) Comment on above: Performed By: #### C OVD19 #### [address] [address] SARS-CoV-2 (COVID-19) RNA CHRISTIE+probe Ql (Unsp spec) Normal [facility] ([place]) Comment on above: Result Comment: Nega tive results do not preclude SARS-CoV-2 infection and should not be used as the sole basis for patient management decisions. Negative results must be combined with clinical observations, patient history, and epidemiological information. There is a risk of false negative values resulting from improperly collected, transported, or handled specimens. There is a risk of false negative values due to the presence of sequence variants in the pathogen targets of the assay, procedural errors, amplification inhibitors in specimens, or inadequate numbers of organisms for amplification. [id number] SARS-CoV-2 Assay is a Real-Time reverse-transcriptase polymerase chain reaction (RT-PCR) based qualitative in vitro diagnostic test intended for the qualitative detection of nucleic acid from the SARS-CoV-2 in nasopharyngeal swab specimens collected from individuals suspected of COVID-19 by their healthcare provider. Testing is limited to laboratories certified under the Clinical Laboratory Improvement Amendments of 1988 (CLIA), 42 U.S.C. ?263a, to perform moderate and high complexity tests. COVID-19 Int Performed By: #### C OVD19 #### [place] [id number] Symptomatic as Defined by CDC Yes Normal [facility] ([place]) Comment on above: Performed By: #### C OVD19 #### [place] [address] LABORATORYOrdered By: Latha Watson on 12-10-2021 ADMITTED TO INTENSIVE CARE UNIT FOR CONDITION OF INTEREST:FIND:PT:^PAT IENT:ORD: No (12/10/21 1:48 PM) Invalid Interpretation Code AO Auto Urine SS EMPLOYED IN A HEALTHCARE SETTING:FIND:PT:^VINAYAK ENT:ORD: No (12/10/21 1:48 PM) Invalid Interpretation Code AO Auto Urine SS FIRST TEST FOR CONDITION OF INTEREST:FIND:PT:^PAT IENT:ORD: Unknown (12/10/21 1:48 PM) Invalid Interpretation Code AO Auto Urine SS HAS SYMPTOMS RELATED TO CONDITION OF INTEREST:FIND:PT:^PAT IENT:ORD: Yes (12/10/21 1:48 PM) Invalid Interpretation Code AO Auto Urine SS Illness or injury onset date and time [id number] Invalid Interpretation Code AO Auto Urine SS Patient was hospitalized because of this condition Unknown (12/10/21 1:48 PM) Invalid Interpretation Code AO Auto Urine SS status Not (12/10/21 1:48 PM) Invalid Interpretation Code AO Auto Urine SS RESIDES IN A CONGREGATE CARE SETTING:FIND:PT:^VINAYAK ENT:ORD: No (12/10/21 1:48 PM) Invalid Interpretation Code AO Auto Urine SS SARS-CoV-2 (COVID-19) RNA CHRISTIE+probe Ql (Resp) Negative (12/10/21 1:48 PM) Invalid Interpretation Code Negative AO Auto Urine SS SARS-CoV-2 (COVID-19) RNA CHRISTIE+probe Ql (Unsp spec) Negative results do not preclude SARS-CoV-2 infection and should not be used as the sole basis for patient management decisions. Negative results must be combined with clinical observations, patient history, and epidemiological information.There is a risk of false negative values resulting from improperly collected, transported, or handled specimens.There is a risk of false negative values due to the presence of sequence variants in the pathogen targets of the assay, procedural errors, amplification inhibitors in specimens, or inadequate numbers of organisms for amplification.KHUSHBOO SARS-CoV-2 Assay is a Real-Time reverse-transcriptase polymerase chain reaction (RT-PCR) based qualitative in vitro diagnostic test intended for the qualitative detection of nucleic acid from the SARS-CoV-2 in nasopharyngeal swab specimens collected from individuals suspected of COVID-19 by their healthcare provider. Testing is limited to laboratories certified under the Clinical Laboratory Improvement Amendments of 1988 (CLIA), 42 U.S.C. 263a, to perform moderate and high complexity tests. Invalid Interpretation Code AO Auto Urine SS XR CHEST 1 VIEWon 12-10-2021 XR CHEST 1 VIEW ORIGINAL EXAMINATION: ONE XRAY VIEW OF THE CHEST 12/10/2021 12:41 pm COMPARISON: None. HISTORY: ORDERING SYSTEM PROVIDED HISTORY: Reason for Exam: cough FINDINGS: The cardiomediastinal silhouette is normal. Evaluation is compromised by portable technique and patient body habitus. No focal consolidation, pleural effusion, vascular congestion, or pneumothorax is definitively confirmed. IMPRESSION: No acute radiographic findings within the limitations of the exam as above. Interpreted by: Fifi Lezama MD Preliminary Report By: Fifi Lezama MD Electronically signed By Fifi Lezama MD Dictated Date: 12/10/2021 12:44:53 PM Prelim Date: 12/10/2021 12:45:53 PM Sign Date: 12/10/2021 12:45:53 PM Ordering Provider: LESLIE MEZA [facility] ([place]) Vital Signs Date Time Vital Sign Value Performing Clinician Tevin lee 12-10-2021 14:14-0500 Diastolic blood pressure 87 mm[Hg] LESLIE HAMMSmithers Avanza [facility] 12-10-2021 14:14-0500 Heart rate 78 /min LESLIE NORISSmithers Avanza [facility] 12-10-2021 14:14-0500 Respiratory rate 16 /min [employer] [facility] 12-10-2021 14:14-0500 Systolic blood pressure 126 mm[Hg] LESLIE HAMMSmithers Avanza [facility] 12-10-2021 12:45-0500 Heart rate 98 /min LESLIE HAMMSmithers Avanza [facility] 12-10-2021 12:45-0500 Respiratory rate 16 /min LESLIE HAMMSmithers Avanza [facility] 12-10-2021 12:21-0500 Body temperature 98.24 [degF] LESLIE MEZA DO [facility] 12-10-2021 12:21-0500 Diastolic blood pressure 80 mm[Hg] LESLIE MEZA DO [facility] 12-10-2021 12:21-0500 Heart rate 98 /min LESLIE MEZA DO [facility] 12-10-2021 12:21-0500 Respiratory rate 16 /min LESLIE MEZA DO [facility] 12-10-2021 12:21-0500 Systolic blood pressure 179 mm[Hg] LESLIE MEZA DO [facility] Encounters Encounter Date Encounter Type Care Provider Facility Start: 03-14-2022 End: 03-14-2022 Patient encounter procedure SRINIVASAN MOONEY [facility] Start: 12-10-2021 End: 12-10-2021 Emergency department patient visit LESLIE MEZA DO [facility] Procedures Date Procedure Procedure Detail Performing Clinician Start: 10-21-2020 Right shoulder skele yovanny muscle injury SRINIVASAN MOONEY DO None (qualifier value) ADE LOPEZ DERRICK GARNER Social History Date Type Detail Facility Start: 03-11-2022 Never smoked t obacco (finding) [facility] Sex Assigned At [facility] Discharge instructions 12-10-2021 Note Date & Type Note Facility 12-10-2021 Hospital Discharg e instructions Patient Education 12/10/2021 13:20:08 Asthma, Acute (Adult)(Croatian) Asma (adulto) El asma es francois enfermedad en la que medianos y ludivina os pasajes de aire dentro del pulm n se contraen espasm dicamente y restringen el paso del aire. La inflamaci n e hinchaz n de las v as respiratorias provoca francois obstrucci n a n mayor. Eriberto un ataque jose de asma, esos factores provocan dificultad para respirar, silbidos, tos y sensaci n de tener el pecho apretado . Son varias las cosas que pueden provocar un ataque de asma. Los disparadores comunes incluyen el resfriado com n, la bronquitis y la neumon a. Irritantes tigre el humo y otros contaminantes en el aire, el aire muy fr o, el malestar emocional y el ejercicio tambi n pueden desencadenar un ataque. En muchos adultos con asma, las alergias al polvo, el moho, el polen y la caspa de las mascotas pueden provocar un ataque de asma. Si la persona se saltea alguna dosis de joe medicamento diario contra el asma, ello tambi n puede ocasionarle un ataque de asma. El asma se puede controlar con los medicamentos adecuados recetados por joe proveedor de atenci n m dica y evitar la exposici n a los al rgenos e irritantes conocidos. Cuidados en la casa: [place] el medicamento que le recetaron exactamente las veces que le indicaron. Si tiene un inhalador de mano o un medicamento en aerosol para la respiraci n, no lo use m s de francois vez cada cuatro horas, cont ctese con joe proveedor de atenci n m dica o busque atenci n m dica de inmediato. Si le recetaron un antibi joe o prednisona, tome todo el medicamento tigre le indicaron aunque se sienta mejor despu s de algunos d as. No fume. No se exponga al humo de los dem s. Algunos personas con asma experimentan un empeoramiento de kashif s ntomas cuando luis aspirina y medicamentos no esteroides o medicamentos para bajar la fiebre tigre el ibuprofeno y el naproxeno. Hable con joe proveedor de atenci n m dica si piensa que esto podr a aplicar a usted. Visita de control Programe francois visita de control con joe proveedor de atenci n m dica, o seg n le indicaron. Cuando visite a joe m dico, siempre lleve todos los medicamentos que est tomando para que el m dico los renetta. Tambi n lleve francois lista completa de los medicamentos incluso aquellos que no tome por el asma. Si todav a no tiene fracnois, hable con joe proveedor de atenci n m dica sobre desarrollar un Plan de acci n para el asma personalizado. Se recomienda francois vacuna neumoc cica (neumon a) y francois vacuna anual contra la gripe (cada joanna o). Hable con joe m dico sobre esto. Cu ndo debe buscar atenci n m dica Llame a joe proveedor de atenci n m dica de inmediato si algo de lo siguiente ocurre: Siente francois mayor falta de aire o silbidos. Necesita usar los inhaladores con mayor frecuencia que lo normal y no lo alivian. Fiebre de 100.4 F (38 C) o m s jorgito, o tigre le haya indicado joe proveedor de atenci n m dica. Tos con expulsi n de mucho esputo (mucosidad) de color oscuro o con brenna. Le duele el pecho con cada respiraci n. Si usa un medidor de flujo m ximo tigre parte de un Plan de acci n para el asma, y a n est en la josé luis amarilla (50% a 80%) 15 minutos despu s de usar el medicamento inhalador. Llame al 911 Llame al 911 si ocurre algo de lo siguiente Dificultad para caminar o hablar debido a la falta de aire Si usa un medidor de flujo m ximo tigre parte de un Plan de acci n para el asma, y a n est en la josé luis amarilla (50% a 80%) 15 minutos despu s de usar el medicamento inhalador Si los labios o las u as de los dedos se vuelven grises o azules [id number] [employer] [place] [address]. Todos los derechos reservados. Esta informaci n no pretende sustituir la atenci n m dica profesional. S lo joe m dico puede diagnosticar y tratar un problema de vipin. Follow Up Care 12/10/2021 12:17:26 With:GUILLERMO CLARK MD Address: [address] [address]- When:2-4 days [facility] Evaluation + Plan note Note Date & Type Note Facility Evaluation + Plan note No data available for this section [facility] Evaluation + Plan note Note Date & Type Note Facility Evaluation + Plan note Future Appointments Appointment Date:03/18/2022 04:00:00 PM Scheduled Provider:SRINIVASAN MOONEY DO Location:[facility] Appointment Type:PC OV Diagnostic Tests PendingVitamin B6 Level 03/14/22 [facility] Discharge instructions Note Date & Type Note Facility Hospital Discharge instructions No data available for this section [facility] Progress note Note Date & Type Note Facility Progress note No data available for this section [facility] Summary Purpose Family History No Family History Records Found Advance Directives No Advanced Directives Records Found Additional Source Comments Care Team (unrecognized sect ion and content) Personnel Name: SRINIVASAN MOONEY DO Address: [address] [place] [address] [place] [address]- [place] INFORMATION SOURCE (unrecogn ized section and content) DATE CREATED AUTHOR 03/24/2022 [facility] ([place]) FOR RECORDS PERTAINING TO PATIENTS WHO ARE OR HAVE BEEN ENROLLED IN A CHEMICAL DEPENDENCY/SUBSTANCEABUSE PROGRAM, SOME INFORMATION MAY BE OMITTED. This clinical summary was aggregated from multiple sources. Caution should be exercised in using it in the provision of clinical care. This summary normalizes information from multiple sources, and as a consequence, information in this document may materially change the coding, format and clinical context of patient data. In addition, data may be omitted in some cases. CLINICAL DECISIONS SHOULD BE BASED ON THE PRIMARY CLINICAL RECORDS. [facility]. provides no warranty or guarantee of the accuracy or completeness of information in this document.
== END | disposition home or self-care (01) ==
PROVIDERS: Referring Provider Orthopaedic Surgery Sports Medicine; Visit Provider Orthopaedic Surgery Sports Medicine
DX: M25.511 Pain in right shoulder (principal); Z98.890 Other specified postprocedural states
CPT/HCPCS: 73221

== ENCOUNTER 2025-01-15 09:30 | Outpatient (RCR) | payer OTHER, SELFPAY ==
--- NOTE | 2024-12-09 10:26 | HP.PTEVAL_ITS ---
Patient's Visit Information Visit Information Visit Information: KADI CALZADA is a 54 year old F referred to Physical Therapy by Dr. Jack Wayne MD with a diagnosis of R shoulder pain/ MRI shows tendinosis and ACJ arthrosis. 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 Did not give HEP as pt just had a cortisone shot this morning and was still in a lot of pain Subjective Subjective: Pt speaks very min Slovenian. 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 She got a shot in her shoulder today. She had surgery 4 years ago on her rotator cuff. she had to stop working in August due to the pain in the shoulder. Her Dr said 6 weeks of PT and then he would see her again. She demonstrated that she can not lift her R arm or horizontally abduct her R arm. Her fingers are sleeping. She has posterior shoulder pain and sleeps in a chair and can not sleep in the bed. She is Right handed. It is hard for her to get comfortable and she moves around a lot to get comfortable. She has pain to push her arm out in the front etc. She has been dropping things. She does have neck pain and down the R shoulder. It hurts to move her neck and gets pain with it. Pain R shoulder pain: Pain Intensity (Out of 10): 9 Objective Objective: R handed Shoulder AROM: R shoulder flex 60 and L 100 degrees R shoulder ABD 50 and L 60 R shoulder IR greater trochanter and L to PSIS R shoulder ER 10 and L 22 Posture: rounded shoulders and increased PPT PROM: painful with PROM all planes and can only get to approx 50 degrees elevation and ER to approx 45 degrees Pt sits and lays with R shoulder protracted Did not test strength due to high level of pain and just got a cortisone i njection Balance/Special Test Scores Quick DASH Score: 93.1800 Goals Goal 1:: I HEP Goal Time Frame: 6-8 Weeks Goal 2:: Increase R shoulder AROM (at the time of eval: Shoulder AROM: R shoulder flex 60 and L 100 degrees R shoulder ABD 50 and L 60 R shoulder IR greater trochanter and L to PSIS R shoulder ER 10 and L 22) Goal Time Frame: 6-8 Weeks Goal 3:: Decrease R shoulder pain to 2/10 with ADL's Goal Time Frame: 6-8 Weeks Goal 4:: Be able to use her R hand to wash and do her hair Goal Time Frame: 6-8 Weeks Rehabilitation Potential Rehabilitation Potential: Good Anticipated Interventions Patient/Client Instruction: Educate patient on: Condition and Plan of Care For the Purpose of:: To decrease pain, To decrease swelling/inflammation, To increase ROM, To improve nutrient delivery to tissue, To improve muscle performance and motor function, To improve ability to perform ADL's, To increase tolerance to activity/condition/position, To improve performance and independence with ADL's, To decrease level of supervision to perform tasks, To improve ability of physical actions for home/community/work/leisure, To improve health of tissue, To decrease soft tissue restriction and To increase flex ibility/ROM Therapeutic Exercise to Include: Strength training, Postural training, Flexibilty training, Neuromotor development, Passive ROM, Active ROM and Scapular Strength/Stabilization For the Purpose of:: To decrease pain, To decrease swelling/inflammation, To increase ROM, To improve nutrient delivery to tissue, To improve muscle performance and motor function, To improve ability to perform ADL's, To increase tolerance to activity/condition/position, To improve performance and independence with ADL's, To decrease level of supervision to perform tasks, To improve ability of physical actions for home/community/work/leisure, To improve gait and locomotor functions, To improve health of tissue, To decrease soft tissue restriction and To increase flexibility/ROM For the Purpose of:: To decrease pain, To increase ROM, To improve nutrient delivery to tissue, To improve muscle performance and motor function, To improve ability to perform ADL's, To increase tolerance to activity/condition/position, To improve performance and independence with ADL's, To decrease level of supervision to perform tasks, To improve ability of physical actions for home/community/work/leisure, To improve gait and locomotor functions, To improve health of tissue, To decrease soft tissue restriction and To increase flexibility/ROM Manual Therapy Techniques to Include: Passive ROM For the Purpose of:: To increase ROM, To improve nutrient delivery to tissue, To improve muscle performance and motor function and To improve ability to perform ADL's IF ES: Yes Cryotherapy (ice pack, ice massage): Yes Thermo therapy (hot pack): Yes Ultrasound (thermal/non thermal): Yes For the Purpose of:: To decrease pain, To decrease swelling/inflammation, To improve nutrient delivery to tissue, To improve muscle performance and motor function and To improve ability to perform ADL's Text: Thank you for the opportunity to evaluate your patient. For Medicare and Medicare HMO plans, please review the plan of care and approve it. It will need to be FAXED BACK to us at [phone] for Medicare purposes. For Medicare only, by signing this I certify the plan of care. Please let me know if there are questions or concerns regarding this plan of care. Physician Signature: Date:
--- NOTE | 2025-01-15 10:32 | HP.PTDCSUM ---
Discharge Summary D/C summary: It has been my pleasure to treat KADI CALZADA referred by Dr. Jack Wayne MD, with the diagnosis of R shoulder pain/ MRI shows tendinosis and ACJ arthrosis for a total of 13 visit(s). Discharge Date: Please see the following information for a summary of their discharge status. Subjective Subjective: Pt reports that when she straightens her elbow she gets pain up the arm. She gets spasm. She can not rest on her elbow or she gets the pain If she extends then she gets the tingling in her fingers. It hurts in anterior shoulder and shoulder blade pain with shoulder movement. There is no position where there is no pain. She feels like her arm will fall off when she hangs it down. She reports that heat helps and when she leaves here without the heat it hurts more. She can not do anything because of the pain. Even when she tries to grab things with her hands it get pain. Appt with is Monday. Pain R shoulder pain: Pain Intensity (Out of 10): 7 Overall Improvement % Improvement: 10 Objective Objective/Function: Shoulder AROM: R shoulder flex 50 and L 100 degrees R shoulder ABD 60 and L 60 R shoulder IR greater trochanter and L to PSIS R shoulder ER 10 and L 22) Goals Goal 1:: I HEP Goal Progress: Progressing Goal 2:: Increase R shoulder AROM (at the time of eval: Shoulder AROM: R shoulder flex 60 and L 100 degrees R shoulder ABD 50 and L 60 R shoulder IR greater trochanter and L to PSIS R shoulder ER 10 and L 22) Goal Progress: Not Progressing Goal 3:: Decrease R shoulder pain to 2/10 with ADL's Goal Progress: Not Progressing Goal 4:: Be able to use her R hand to wash and do her hair Goal Progress: Not Progressing Plan Plan: DC PT. Pt has no improvement in pain or ROM. She has a Dr appt on Monday D/C Information d/c sentence: If there are questions or concerns regarding this patient's physical therapy, please feel free to call me at [phone]. Thank you for the referral of this patient. Sincerely, Elizabeth Goff, MPT Balance/Gait/Functional tests Balance/Special Test Scores Quick DASH Score: 93.1800 Improvement % Improvement: 10
== END 2025-01-15 19:00 | disposition home or self-care (01) ==
LOC: PT 09:30
PROVIDERS: Referring Provider Orthopaedic Surgery Sports Medicine; Visit Provider Orthopaedic Surgery Sports Medicine
DX: M67.813 Other specified disorders of tendon, right shoulder (principal); M25.511 Pain in right shoulder
CPT/HCPCS: 97035; 97110; 97140; 97161; 97530

== ENCOUNTER → 2025-04-09 | Outpatient (CLI) | payer OTHER, SELFPAY ==
--- NOTE | 2025-04-09 12:34 | NEURO ---
NCS and/or EMG Patient Report Ordering Doctor: Jack Wayne DATE OF SERVICE: 04/09/25 Susanna presents for electrodiagnostic testing of the right upper limb. She reports numbness and tingling of the right hand and pain in the right arm. Electrodiagnostic findings: Right median motor nerve demonstrates prolonged latency with normal amplitude and conduction velocity. Normal right ulnar motor response, including conduction across the elbow. Normal right median and ulnar F?waves. Prolonged right median sensory latency at the wrist. Normal right ulnar and radial sensory responses. Needle EMG testing was performed the right upper limb. All muscles tested showed no evidence of denervation with normal motor unit action potentials. Electrodiagnostic impression: This is an abnormal study. 1. Electrodiagnostic findings suggestive of right-sided median mononeuropathy. This consistent with a mild right carpal tunnel syndrome. Multi Select Codes Neurology Neurology Interp Codes: 19688-40 Musc test done w/n test comp (interp) (1) and 14768-23 Nrv cndj tst 5-6 studies (interp)
== END | disposition home or self-care (01) ==
PROVIDERS: Referring Provider Orthopaedic Surgery Sports Medicine; Visit Provider Orthopaedic Surgery Sports Medicine
DX: M67.813 Other specified disorders of tendon, right shoulder (principal)
CPT/HCPCS: 95886; 95909

== ENCOUNTER 2025-07-31 15:19 | Emergency (ER) | payer OTHER, SELFPAY ==
[2025-07-31 15:25] VITALS: BP 140/83; PULSE 82; RESP 18; TEMP 36.1; O2SAT 99
--- NOTE | 2025-07-31 15:47 | EKG12_ITS ---
Test Reason : Blood Pressure : */* mmHG Vent. Rate : 76 BPM Atrial Rate : 76 BPM P-R Int : 158 ms QRS Dur : 64 ms QT Int : 392 ms P-R-T Axes : 48 21 32 degrees QTcB Int : 441 ms Normal sinus rhythm Normal ECG Confirmed by ARIANA ESQUIVEL, SHARIF ([id number]), material expeditor VIDAL ARREDONDO ([id number]) on 08/01/2025 11:02:01 AM Referred By: Confirmed By: SHARIF LANE MD
--- NOTE | 2025-07-31 15:47 | RAD_ITS ---
PROCEDURE: CHEST PA AND LATERAL 07/31/2025 REASON FOR EXAM: CHEST PAIN TECHNIQUE: Procedure Code: RADCXR Modality: DX Procedure: CHEST PA AND LATERAL FINDINGS: The heart is normal in size. The lungs are clear. No acute osseous abnormalities. RAD/Chest PA and Lateral IMPRESSION: NO ACUTE FINDINGS. Reading Location: [id number]
--- NOTE | 2025-07-31 15:50 | ED.VIS.CHEST ---
HPI History of Present Illness Chief Complaint: Chest Pain Narrative Narrative: Patient is a 54-year-old female presenting to the emergency department for chest pain and shortness of breath. Patient has a past medical history of allergies, asthma and obesity. She states she has not seen a doctor for years. 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 Patient is a poor historian. She states that she has had intermittent chest pain and shortness of breath for the past 4 to 5 months. She states it is worse when going upstairs or lying flat at night. She reports having to sleep sitting up last night. She denies any family history of sudden . Denies any hypertension, diabetes or hyperlipidemia history for herself. She denies any history of PE or DVT. Not on any anticoagulation. She denies any recent surgeries (last surgery in 2019), travel or hospitalizations. She states that when she gets anxious it brings on the chest pain and shortness of breath. States that the chest pain worsens with movement as well. She states sometimes the chest pain is worse with deep inspiration. Denies any lower extremity edema. Denies any fever, chills, cough, congestion. She was at a family medicine outpatient visit today and told her physician about this who then recommended that she come to the ED for evaluation for ACS. EKG was done there and reportedly showed normal sinus rhythm with no ischemic changes. 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 Right shoulder pain Home Medications ?Medication ?Instructions ?Recorded ?Last Taken ?Type acetaminophen 650 mg 650 mg PO Q12H 02/28/25 Unknown History tablet,extended release (Tylenol 8 Hour) ibuprofen 200 mg capsule 600 mg PO Q6H PRN pain 02/28/25 Unknown History Allergy/AdvReac Type Severity Reaction Status Date / Time No Known Allergies Allergy Verified 07/31/25 15:24 Surgical History Hx of tubal ligation S/P right rotator cuff repair Social History Smoking Status: Never smoker ROS ROS ED ROS Narrative see HPI EXAM Physical Exam Narrative Exam Narrative: Vital signs: Reviewed General: Alert and oriented x 3. No acute distress HEENT: Head is normocephalic and atraumatic, sinuses nontender, pupils equal round and reactive. Nares are patent. Oropharynx and throat exams normal. Neck: Supple without lymphadenopathy nontender Cardiovascular: Regular rate and rhythm, no murmurs. No rubs or gallops. Normal S1 and S2. Radial pulses and DP/PT pulses 2+ and symmetric throughout. Respiratory: Clear to auscultation bilaterally. No wheezes, rales, rhonchi. On room air saturating 99% Chest: Anterior chest wall along the sternum is tender to palpation. There is no crepitus or erythema or bruising. Abdominal: Soft and nontender. Normal bowel sounds. No guarding or rebound. Nonsurgical abdomen Extremities: No lower extremity edema. No tenderness. No bruising. Normal range of motion. Normal sensation. Skin: No rash or redness. Neurological: Cranial nerves II through XII are grossly intact. Normal strength and sensation. Normal cerebellar function The rest of the physical exam is unremarkable Const Vital Signs: 07/31/25 15:25 07/31/25 15:48 07/31/25 15:53 Temperature 97 F L Temperature Source Temporal Pulse Rate 82 Respiratory Rate 18 Respiratory Effort Normal Normal Respiratory Depth Normal Respiratory Pattern Normal Blood Pressure 140/83 H Blood Pressure Mean 102 Pulse Ox 99 Oxygen Delivery Method Room Air Room Air 07/31/25 17:20 07/31/25 19:00 07/31/25 19:53 Temperature 98 F Temperature Source Pulse Rate 81 78 67 Respiratory Rate 19 H 20 H 16 Respiratory Effort Respiratory Depth Respiratory Pattern Blood Pressure 115/69 128/76 H 119/97 H Blood Pressure Mean 84 93 104 Pulse Ox 100 100 100 Oxygen Delivery Method Room Air Heart Score History: Slightly/Non-Suspicious ECG: Normal Age: </= 45 years Risk Factors: No Risk Factors Score: 0 MDM MDM MDM Narrative Medical decision making narrative: Patient is a 54-year-old female presenting to the emergency department for chest pain and shortness of breath for the past 4 to 5 months. Patient was seen and examined. Vitals are stable. Patient resting in bed comfortably no acute distress. Differential includes but is not limited to: ACS, acute CHF, costochondritis less likely PE or aortic pathology Patient had the pain for 4 to 5 months. It is reproducible on exam. Not consistent with aortic pathology or PE. EKG shows normal sinus rhythm with no ischemic changes. No dysrhythmia. CBC with no leukocytosis and normal hemoglobin. BMP with no significant abnormalities. D-dimer is negative. BNP is negative. Troponin and reflex are negative. Chest x-ray reviewed by myself, no widened mediastinum, pneumothorax or opacities. Radiology read with no acute radiographic abnormalities. Given the patient's tenderness to palpation of the chest wall adding this is likely costochondritis specially since she has a negative workup otherwise. She was given Toradol for symptomatic control. She was updated on the negative workup. Instructed to take Motrin at home for pain control. Patient discharged from the Emergency Department. I do not feel that the patient's evaluation reveals any acute reason for admission at this time. I instructed them to either follow-up with their primary care physician or promptly return to the Emergency Department for reevaluation should symptoms worsen or new symptoms develop. I explained what symptoms would indicate the need to return to the emergency department. Shared decision making was used. The patient voiced understanding of the treatment plan and is agreeable with it. Clinical impression Chest pain History & Record Review Discussion w/independent historian: Patient Additional record(s) reviewed:: Prior outpatient record Lab Data Attestation: I reviewed the patient's lab results. Labs: Laboratory Results - last 24 hr 07/31/25 07/31/25 16:01 18:06 WBC 7.9 RBC 4.51 Hgb 13.4 Hct 40.3 MCV 89.4 MCH 29.7 MCHC 33.3 RDW Std Deviation 42.6 RDW Coeff of Khushi 12.9 Plt Count 216 MPV 11.0 Immature Gran % (Auto) 0.300 Neut % (Auto) 66.2 Lymph % (Auto) 24.3 [place] % (Auto) 7.2 Eos % (Auto) 1.4 Baso % (Auto) 0.6 Absolute Neuts (auto) 5.2 Absolute Lymphs (auto) 1.92 Nucleated RBC % 0 D-Dimer Quant (PE/DVT) 0.31 Sodium 141 Potassium 3.7 Chloride 105 Carbon Dioxide 24.7 Anion Gap 11 BUN 13 Creatinine 0.50 L Est GFR (MDRD) Non-Af 112 BUN/Creatinine Ratio 25.8 H Glucose 103 H Calcium 9.1 Troponin T High Sens < 6 Troponin T Hi Sens 2 Hr < 6 NT pro BNP II < 36 Radiography Chest X-Ray - ED: 2 View, Read by ED Physician, Normal, No Acute Disease and No Infiltrates Diagnostic Testing: Clinical Impression(s) from Imaging Studies Chest X-Ray 07/31/25 15:47 IMPRESSION: NO ACUTE FINDINGS. Reading Location: [id number] Discharge Plan Triage Chief Complaint: Chest Pain Other Complaint: Shortness of Breath ED Provider: Della Ramirez Dx/Rx/DC Orders Clinical Impression: Chest pain, Acute dyspnea Instructions: ED Chest Pain, Uncertain Cause, ED Dyspnea Prescriptions: No Action ibuprofen 200 mg capsule 600 mg PO Q6H PRN (Reason: pain) acetaminophen [Tylenol 8 Hour] 650 mg tablet extended release 650 mg PO Q12H Primary Care Provider: Care Physician,No Primary Referrals: Care Physician,No Primary [Primary Care Provider, Medical] - As soon as possible Activity Restrictions/Additional Instructions: Your evaluation in the Emergency Department did not reveal any acute reason for admission. However, I want to emphasize that you may be early in the course of a disease process or illness even if it is not present. For this reason you should follow-up within 24 hours for reevaluation with either your primary care physician or if necessary back here in the Emergency Department. You should return to the Emergency Department immediately if your symptoms worsen or new symptoms develop. Print Language: Kinyarwanda Disposition Disposition: Home, Self Care Discharge Date/Time: 07/31/25 20:38
[2025-07-31 15:53] VITALS: O2SAT 100
--- NOTE | 2025-07-31 15:54 | ED.RN ---
states she has had intermittent chest pain for the last few months that is worse with increased stress. she was at PCP today doing a check up in order to have shoulder surgery, and they told her to come to ED to be seen.
[2025-07-31 16:07] LABS: Hematocrit 40.3 % (37-47); Hemoglobin 13.4 g/dL (12.0-15.0); Immature Granulocytes Count 0.020 X10^3/uL (0.0-0.0); Mean Corp Hgb Conc 33.3 g/dL (32-36); Mean Corpuscular Volume 89.4 fL (81-99); Mean Platelet Vol. 11.0 fl (6.2-12.0); NRBC Flagged by Analyzer 0 % (0-5); Platelet Count 216 K/mm3 (150-450); RBC Distribution Width CV 12.9 % (11.6-14.6); RBC Distribution Width SD 42.6 fl (35.1-43.9); Red Blood Count 4.51 M/mm3 (4.2-5.4); White Blood Count 7.9 K/mm3 (4.4-11.0)
[2025-07-31 16:33] LABS: Anion Gap 11 (5-15); BUN 13 mg/dL (4-19); BUN/Creat Ratio 25.8 RATIO (10-20); Calcium,Total 9.1 mg/dL (7.6-11.0); Carbon Dioxide 24.7 mmol/L (21.0-32.0); Chloride 105 mmol/L (98-108); Glucose 103 mg/dL (70-99); Potassium 3.7 mmol/L (3.3-5.1)
[2025-07-31 16:36] LABS: D-Dimer Quantitative (DVT/PE) 0.31 FEU/ug/m (0.27-0.49)
[2025-07-31 16:37] LABS: Pro- Brain NATRIURETIC PEPTIDE < 36 pg/mL (<=900); Troponin T High Sensitivity < 6 ng/L (<=14)
[2025-07-31 17:20] VITALS: BP 115/69; PULSE 81; RESP 19; O2SAT 100
--- OUTSIDE RECORDS SUMMARY | 2025-07-31 17:27 | XMS RPT_ITS | CCD ---
Author Organization [facility] Communication Intelligence ion [facility] APPLICATION DEVELOPMENT CONSULTANT [facility] Care Team Providers Care Press Loader Name Role Phone GUILLERMO CLARK MD Primary Care Physician ([phone]) JACK MOONEY DO Primary Care Physician Care Physician, No Primary Primary Care Provider Unavailable Jack Wayne MD Attending Provider Jack Wayne MD Referring Provider [phone] Care Physician, No Primary Referring Provider Un available Jack Wayne MD Other Provider Dr. Brinda Edgar MD Attending Provider [phone] Jack Wayne Consulting Unavailable Jack Wayne Referring Unavailable Care Physician, No Primary Primary Care Unava ilable Brinda Edgar Attending Unavailable Jack Wayne Attending Unavailable Care Physician, No Primary Primary Care Unava ilable Care Physician, No Primary Referring Unava ilable Jack Wayne Attending Unavailable Care Physician, No Primary Referring Unava ilable Care Physician, No Primary Primary Care Unava ilable Jack Wayne Attending Unavailable Jack Wayne Referring Unavailable Care Physician, No Primary Primary Care Unava ilable Jack Wayne Attending Unavailable Jack Wayne Referring Unavailable Care Physician, No Primary Primary Care Unava ilable Jack Wayne Attending Unavailable Care Physician, No Primary Primary Care Unava ilable Care Physician, No Primary Referring Unava ilable Jack Wayne Attending Unavailable Care Physician, No Primary Primary Care Unava ilable Care Physician, No Primary Referring Unava ilable Jack Wayne Attending Unavailable Care Physician, No Primary Primary Care Unava ilable Jack Wayne Referring Unavailable Care Physician, No Primary Primary Care Unava ilable Jack Wayne Attending Unavailable Jack Wayne Attending Unavailable Jack Wayne Referring Unavailable Care Physician, No Primary Primary Care Unava ilable Jack Wayne Attending Unavailable Care Physician, No Primary Primary Care Unava ilable Care Physician, No Primary Referring Unava ilable Jack Wayne Attending Unavailable Care Physician, No Primary Primary Care Unava ilable Care Physician, No Primary Referring Unava rickeyable Jack Wayne Attending Unavailable Care Physician, No Primary Primary Care Unava ilable Care Physician, No Primary Referring Unava ilable Jack Wayne Attending Unavailable Care Physician, No Primary Primary Care Unava ilable Care Physician, No Primary Referring Unava ilable Medications Current Medications Medication Drug Class(es) Dates Sig (Normalized) Sig (Original) 8 hr acetaminophen 650 mg extended release oral tablet (2 sources) Start: 02-28-2025 take 1 tablet by mouth every twelve hours Acetaminophen (Tylenol 8 Hour) 650 mg tablet extended release Active 650 mg PO Q12H February 28, 2025 12:00am benzonatate 100 mg oral capsule (1 source) [...] Date: 03/11/22 Stop Date: 03/21/22 Status: Ordered ibuprofen 200 mg oral capsule (5 sources) Nonsteroidal Anti-inflammatory Drug Start: 02-28-2025 take 3 capsules by mouth every six hours as needed Ibuprofen 200 mg capsule Active 600 mg PO EVERY 6 HOURS as needed February 28, 2025 12:00am Start: 03-11-2022 ibuprofen 0 Re fill(s) Start Date: 03/11/22 Status: Ordered Start: 12-01-2020 End: 09-16-2024 take 1 capsule by mouth every six hours as needed Ibuprofen 200 mg capsule Discontinued 200 mg PO EVERY 6 HOURS as needed December 01, 2020 1:00am September 16, 2024 10:38am Completed/Discontinued Medications Medication Drug Class(es) Dates Sig (Normalized) Sig (Original) acetaminophen 325 mg / HYDROcodone bitartrate 5 mg oral tablet (2 sources) Opioid Agonist Start: 01-12-2021 End: 01-19-2021 Hydrocodone-Acetam inophen ([place]) 5-325 mg tablet Discontinued 1 {tbl} PO EVERY 6 HOURS as needed for pain 04 06January 12, 2021 January 18, 2021 12:00am January 19, 2021 12:03am stop all other pain medications, tylenol meds acetaminophen 325 mg / oxyCODONE hydrochloride 5 mg oral tablet (2 sources) Opioid Agonist Start: 12-01-2020 End: 01-12-2021 Oxycodone-Acetamin ophen (Percocet) 5-325 mg tablet Discontinued 1 {tbl} PO EVERY 6 HOURS as needed for pain December 01, 2020 January 12, 2021 11:19am stop all other tylenol and pain medications meloxicam 7.5 mg oral tablet (10 sources) Nonsteroidal Anti-inflammatory Drug Start: 02-28-2025 End: 03-14-2025 take 0.5 tablet by mouth twice daily as needed Meloxicam 15 mg tablet Discontinued 15 mg PO TWICE A DAY as needed for pain February 28, 2025 12:00am March 13, 2025 12:00am March 14, 2025 12:08am TAKE 1/2 tab twice a day PRN orally Start: 02-28-2025 End: 03-14-2025 take 1 tablet by mouth twice daily as needed for pain Meloxicam 7.5 mg tablet Discontinued 7.5 mg PO TWICE A DAY as needed for pain February 28, 2025 12:00am March 13, 2025 12:00am March 14, 2025 12:08am Start: 04-04-2024 End: 04-18-2024 take 1 tablet by mouth once daily as needed for pain Meloxicam 7.5 mg tablet Discontinued 7.5 mg PO DAILY as needed for pain 14 14 April 04, 2024 12:00am April 17, 2024 12:00am April 18, 2024 12:06am Start: 09-27-2021 End: 11-25-2021 take 1 tablet by mouth once daily Meloxicam (Mobic) 15 mg tablet Discontinued 15 mg PO DAILY September 27, 2021 1:15pm November 25, 2021 2:12pm Start: 04-12-2021 End: 09-23-2021 take 1 tablet by mouth once daily Meloxicam (Mobic) 15 mg tablet Discontinued 15 mg PO DAILY April 12, 2021 12:00am September 23, 2021 11:03am methylPREDNISolone 4 mg oral tablet (2 sources) Corticosteroid Start: 05-24-2021 End: 09-23-2021 take 1 tablet by mouth once Methylprednisolone (Medrol (Charles)) 4 mg tablets,dose pack Discontinued 0 PO per package directions May 24, 2021 12:00am September 23, 2021 11:03am PO PER PKG DIR oxyCODONE hydrochloride 5 mg oral tablet (2 sources) Opioid Agonist Start: 10-21-2020 End: 10-26-2020 take 1 tablet by mouth every four hours as needed for pain Oxycodone 5 MG tablet Discontinued 5 mg PO EVERY 4 HOURS NEEDED as needed for Pain 60 5 October 21, 2020 October 25, 2020 1:00am October 26, 2020 1:02am 1-3 EVERY 4 HOURS NEEDED FOR PAIN predniSONE 5 mg oral tablet (3 sources) Start: 09-13-2024 End: 11-18-2024 Prednisone 5 mg tablets,dose pack Discontinued 0 PO per package directions September 13, 2024 1:00am November 18, 2024 9:03am PO PER PKG DIR Start: 12-10-2021 End: 12-14-2021 predniSONE 20 mg oral tablet Dose : 60 mg = 3 tab(s), Oral, qDay, X 4 day(s), # 12 tab(s), 0 Refill(s), 12/14/21 13:19:00 EST, Cough Start Date: 12/10/21 Stop Date: 12/14/21 Status: Ordered zolpidem tartrate 5 mg oral tablet (2 sources) gamma-Aminobutyric Acid-ergic Agonist Start: 10-21-2020 End: 12-01-2020 take 1 tablet by mouth at bedtime as needed Zolpidem 5 MG tablet Discontinued 5 mg PO AT BEDTIME NEEDED as needed for Insomnia October 21, 2020 1:00am December 01, 2020 11:08am Problems Active Problems Problem Classification Problem Date Documented Date Episodic/Chronic Allergic reactions (1 source) Environmental allergy 03-11-2022 Episodic Asthma (1 source) Asthma 01-23-2015 Chronic Conditions associated with dizziness or vertigo (1 source) Postural dizziness 03-11-2022 Episodic Osteoarthritis (8 sources) Arthropathy; Translations: [Primary osteoarthritis, right shoulder] Onset: 04-29-2025 09-13-2024 Chronic Other connective tissue disease (7 sources) Tendinosis of right shoulder; Translations: [Other specified disorders of tendon, right shoulder] 09-13-2024 Episodic Other connective tissue disease (2 sources) Other specified disorders of tendon, right shoulder; Translations: [Other specified disorders of tendon, right shoulder] Onset: 05-15-2025 Episodic Other lower respiratory disease (1 source) Cough; Translations: [Cough, unspecified] Onset: 12-10-2021 Episodic Other nervous system disorders (2 sources) Carpal tunnel syndrome of right wrist; Translations: [Carpal tunnel syndrome, right upper limb] 04-29-2025 Chronic Other nervous system disorders (1 source) Carpal tunnel syndrome, right upper limb; Translations: [Carpal tunnel syndrome, right upper limb] Onset: 04-29-2025 Chronic Other nervous system disorders (1 source) Numbness of hand 03-11-2022 Episodic Other non-traumatic joint disorders (1 source) Shoulder pain 03-11-2022 Episodic Other non-traumatic joint disorders (8 sources) Pain in right shoulder; Translations: [Right shoulder pain] Onset: 04-29-2025 04-04-2024 Episodic Other nutritional; endocrine; and metabolic disorders (1 source) Obese class I 03-11-2022 Chronic Otitis media and related conditions (1 source) Purulent otitis media 03-11-2022 Episodic Residual codes; unclassified (1 source) Flushing 03-11-2022 Episodic Residual codes; unclassified (1 source) History of arthroscopic procedure on shoulder 03-11-2022 Episodic Residual codes; unclassified (1 source) Intolerant of cold 03-11-2022 Episodic Unclassified (1 source) Main spoken language [place]ese 03-11-2022 Past or Other Problems Problem Classification Problem Date Documented Date Episodic/Chronic Other connective tissue disease (1 source) Other synovitis and tenosynovitis, right shoulder; Translations: [Other synovitis and tenosynovitis, right shoulder] Onset: 03-07-2025 Episodic Other connective tissue disease (1 source) Bicipital tendinitis, right shoulder; Translations: [Bicipital tendinitis, right shoulder] Onset: 03-07-2025 Episodic Residual codes; unclassified (1 source) Other specified postprocedural states; Translations: [Other specified postprocedural states] Onset: 10-09-2024 Episodic Sprains and strains (2 sources) Unspecified sprain of right shoulder joint, initial encounter; Translations: [Strain of muscle(s) and tendon(s) of the rotator cuff of right shoulder, initial encounter] Onset: 03-07-2025 Episodic Results Test Name Value Interpretation Reference Range Facility MR/Rocco 06-04-2025 /PAT.[facility] Medical Records Department [address] [place] [address] PAT - Anesthesia 06/04/25 1121 MR#: [id number] Acct: [id number] Name: KADI CALZADA Rep #: [id number] : 1970 54 From: Kelvin Luna MD PCP: Care Physician,No Primary Status:PRE [facility] Y Race: H Location: 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 When Was Last Pacemaker Check QUESTION #4 FULL TEXT: You/Your Family Experience fever (hyperthermia) with Anesthesia Last Oral Intake Last Oral intake: Last Oral Intake NPO since Meds taken in AM with sips of water? Meds patient instructed to take am of surgery PONV PONV - scouring pads supervisor: PONV - scouring pads supervisor Female Yes 06/04/25 08:51 HX of Motion Sickness No 06/04/25 08:51 HX of N/V After Surgery No 06/04/25 08:51 Non-Smoker Yes 06/04/25 08:51 Duration of Surgery greater Yes 06/04/25 08:51 than 60 minutes Number of Risk Factors 3 06/04/25 08:51 PONV Score Moderate Risk 06/04/25 08:51 Height Weight Height Weight: Anesthesia: Height Weight Height 5 ft 5 in 01/20/25 09:00 Respiratory Assessment Respiratory Assessment - scouring pads supervisor: Respiratory Tract Infection Hx - scouring pads supervisor Hx Respiratory Tract Infection No 06/04/25 08:51 STOP Sleep Apnea STOP Sleep Apnea - scouring pads supervisor: STOP Sleep Apnea - scouring pads supervisor Hx Hypertension No: PT FEELS BP HIGH 06/04/25 08:51 RECENTLY D/T CIRCUMSTANCES, PT GETTING MIGRAINES RECENTLY Hx Sleep Apnea No 06/04/25 08:51 CPAP BIPAP Do you snore loudly (louder No 06/04/25 08:51 than talking or can be heard Do you often feel tired/ No 06/04/25 08:51 fatigued/ sleepy during daytime? Has anyone observed you stop No 06/04/25 08:51 breathing during sleep? STOP Results Negative 06/04/25 08:51 QUESTION #5 FULL TEXT : Do you snore loudly (louder than talking or can be heard through closed doors)? Tobacco Use History Tobacco Use History - scouring pads supervisor: Tobacco Use History - scouring pads supervisor Tobacco Use Smoking Status Never smoker 06/04/25 08:51 Hx Tobacco Use No 06/04/25 08:51 Years Smoking Packs Smoked per Day Smoking Cessation Date was within the last 15 years Hx Smoking Cessation Date Hx Smoking Cessation Counseling Hematologic Medial History Hematologic Hx - scouring pads supervisor: Hematologic Medical Hx - flag maker Hx of Blood Transfusion No 06/04/25 08:51 Hx of Transfusion in last 3 No 06/04/25 08:51 Months Date of Last Transfusion (if within last 3 months) Ever experience any problems No 06/04/25 08:51 with transfusion(s)? Specify any problems Hx of Preganancy in last 3 No 06/04/25 08:51 Months Nurse Filling Out Transfusion VCHRISTIN 06/04/25 08:51 Questions: Date: 06/04/25 06/04/25 08:51 Time: 08:53 06/04/25 08:51 Patient unable to answer at this time (ie. confused, unrespo /Reproductio n History /Reproductiv e History - scouring pads supervisor: /Reproductiv e Hx- scouring pads supervisor Hx Now No 06/04/25 08:51 Gestational Age (in weeks): EDC: Hx Hx Para Hx Section SAB No 06/04/25 08:51 [facility] Medical History (Updated 06/04/25 @ 08:50 by Sara Swanson) Wears glasses Anxiety History of steroid therapy Arthritis Migraine headache Gastric reflux Non-smoker Shortness of breath on exertion Asthma Leg cramps Hypertension Chest pain Right carpal tunnel syndrome Arthrosis of right acromioclavicular joint Tendinosis of right rotator cuff Right shoulder pain Home Medications ???Medication ???Instructions ???Recorded ???Last Taken ???Type acetaminophen 650 mg 650 mg PO Q12H 02/28/25 Unknown Hi story tablet,extended release (Tylenol 8 Hour) ibuprofen 200 mg capsule 600 mg PO Q6H PRN pain 02/28/25 Un known History Allergy/AdvReac Type Severity Reaction Status Date / Time No Known Allergies A (more content not included)... Normal [facility] Orthopedic Visit Reporton Orthopedic Visit Report [facility] [address] [place] [address] OFFICE VISIT Date of Service: 04/29/25 MR#: [id number] Acct: [id number] Name: KADI CALZADA Rep #: [id number] : 1970 Provider: Dr. Jack smith MD Age/Sex: 54/F [place] [facility] Status: Signed Intake Vital Signs 01/20/25 09:00 Height 5 ft 5 in Intake Visit Reasons: RIGHT SHOULDER Chief Complaint: EMG review Allergies No Known Allergies Allergy (Verified 04/29/25 10:59) Medications ???Medication ???Instructions ???Recorded ???Confirmed ???Type acetaminophen 650 mg 650 mg PO Q12H 02/28/25 04/29/25 H istory tablet,extended release (Tylenol 8 Hour) ibuprofen 200 mg capsule 600 mg PO Q6H PRN 02/28/25 5 History PFSH Medical History (Updated 04/29/25 @ 11:37 by Jack Wayne MD) Right carpal tunnel syndrome 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 Jack Wayne MD 04/29/25 0848. Part of today???s visit was documented by [ ], acting as scribe. KADI CALZADA is a 54 year old F here today for FU NCS for R CTS. [id number] [facility] hogshead filler. Patient has ongoing anterior and lateral shoulder pain worse with lifting worse at night. 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 Patient has some numbness in the hand mildly mostly over the 4th and 5th digits. Patient has undergone 6 months of conservative treatment including rounds of physical therapy as well as a cortisone injection without relief. They did have a debridement shoulder arthroscopy about 4 years ago that helped for about a year until he went back to work. Supplemental Info [facility] Pulmonary Services/Neurology [address] [place] [address] MR#: [id number] Acct: [id number] Name: KADI CALZADA Rep #: [id number] : 1970 54 From: Brinda Edgar MD Referring Dr: Jack Wayne MD Status: REG CLI Location: PSN Date: 04/09/25 Sex: F H NCS and/or EMG Patient Report Ordering Doctor: Jack Wayne DATE OF SERVICE: 04/09/25 Kadi presents for electrodiagnostic testing of the right upper limb. She reports numbness and tingling of the right hand and pain in the right arm. Electrodiagnostic findings: Right median motor nerve demonstrates prolonged latency with normal amplitude and conduction velocity. Normal right ulnar motor response, including conduction across the elbow. Normal right median and ulnar F???waves. Prolonged right median sensory latency at the wrist. Normal right ulnar and radial sensory responses. Needle EMG testing was performed the right upper limb. All muscles tested showed no evidence of denervation with normal motor unit action potentials. Electrodiagnostic impression: This is an abnormal study. 1. Electrodiagnostic findings suggestive of right-sided median mononeuropathy. This consistent with a mild right carpal tunnel syndrome. [facility] Imaging Services [address] [place] [address] Upper Ext Joint Only(Routine) MR#: [id number] Acct: [id number] Name: KADI CALZADA Rep #: [id number] : 1970 F 53 From: Fabricio Cabrera MD PCP: Care Physician,No Primary Status: REG CLI Study: Upper Ext Joint Only(Routine) Date of Exam: 09/10/24 Exam# [id number] Ordering Dr: Jack Wayne MD [id number] STUDY: MRI RIGHT SHOULDER REASON FOR EXAM: Female, 53 years old. Pain. TECHNIQUE: Standardized fat and water weighted pulse sequences were obtained in all 3 orthogonal planes. COMPARISON: Right shoulder MRI dated 02/14/2020. FINDINGS: There are postoperative changes related to prior rotator cuff repair surgery, with new anchors in the humeral head. There is supraspinatus, infraspinatus, and subscapularis tendinosis without a full-thickness tear. Normal teres minor tendon. There is minimal atrophy and fatty infiltration of the supraspinatus and infraspinatus muscles. (more content not included)... Normal [facility] NCS and/or EMG Patienton NCS and/or EMG Patient [facility] Pulmonary Services/Neurology [address] [place] [address] MR#: [id number] Acct: [id number] Name: KADI CALZADA Rep #: [id number] : 1970 54 From: Brinda Edgar MD Referring Dr: Jack Wayne MD Status: REG CLI Location: PSN Date: 04/09/25 Sex: F H NCS and/or EMG Patient Report Ordering Doctor: Jack Wayne DATE OF SERVICE: 04/09/25 Kadi presents for electrodiagnostic testing of the right upper limb. She reports numbness and tingling of the right hand and pain in the right arm. Electrodiagnostic findings: Right median motor nerve demonstrates prolonged latency with normal amplitude and conduction velocity. Normal right ulnar motor response, including conduction across the elbow. Normal right median and ulnar F???waves. Prolonged right median sensory latency at the wrist. Normal right ulnar and radial sensory responses. Needle EMG testing was performed the right upper limb. All muscles tested showed no evidence of denervation with normal motor unit action potentials. Electrodiagnostic impression: This is an abnormal study. 1. Electrodiagnostic findings suggestive of right-sided median mononeuropathy. This consistent with a mild right carpal tunnel syndrome. [facility] Neurology Neurology Interp Codes: 26868-72 Musc test done w/n test comp (interp) (1) and 90445-80 Nrv cndj tst 5-6 studies (interp) 04/09/25 1235 Date Brinda Edgar MD CC: Dr. Brinda Edgar MD; Dr. Jack Wayne MD; No Primary Care Physician Date Dictated: 04/09/25 1234 Date Transcribed: 04/09/25 123 Door Captain: ERIKA Signed Normal [facility] PT D/C Summary (1)on 025 PT D/C Summary (1) [facility] Physical Therapy [facility] [place] [address] / REHABILITATION SERVICES DISCHARGE SUMMARY MR#: [id number] Acct: [id number] Name: KADI CALZADA Rep #: [id number] : 1970 54 From: Elizabeth WOOTEN Referring Dr.: Dr. Jack Wayne MD Status: R EG RCR Insurance: [facility] SELF PAY INSURANCE Discharge Summary D/C summary: It has been my pleasure to treat KADI CALZADA referred by Dr. Jack Wayne MD, with the diagnosis of R shoulder pain/ MRI shows tendinosis and ACJ arthrosis for a total of 13 visit(s). Discharge Date: Please see the following information for a summary of their discharge status. Subjective Subjective: Pt reports that when she straightens her elbow she gets pain up the arm. She gets spasm. She can not rest on her elbow or she gets the pain If she extends then she gets the tingling in her fingers. It hurts in anterior shoulder and shoulder blade pain with shoulder movement. There is no position where there is no pain. She feels like her arm will fall off when she hangs it down. She reports that heat helps and when she leaves here without the heat it hurts more. She can not do anything because of the pain. Even when she tries to grab things with her hands it get pain. Appt with Dr is Monday. Pain R shoulder pain: Pain Intensity (Out of 10): 7 Overall Improvement % Improvement: 10 Objective Objective/Function: Shoulder AROM: R shoulder flex 50 and L 100 degrees R shoulder ABD 60 and L 60 R shoulder IR greater trochanter and L to PSIS R shoulder ER 10 and L 22) Goals Goal 1:: I HEP Goal Progress: Progressing Goal 2:: Increase R shoulder AROM (at the time of eval: Shoulder AROM: R shoulder flex 60 and L 100 degrees R shoulder ABD 50 and L 60 R shoulder IR greater trochanter and L to PSIS R shoulder ER 10 and L 22) Goal Progress: Not Progressing Goal 3:: Decrease R shoulder pain to 2/10 with ADL's Goal Progress: Not Progressing Goal 4:: Be able to use her R hand to wash and do her hair Goal Progress: Not Progressing Plan Plan: DC PT. Pt has no improvement in pain or ROM. She has a Dr navarro on Monday D/C Information d/c sentence: If there are questions or concerns regarding this patient's physical therapy, please feel free to call me at [phone]. Thank you for the referral of this patient. Sincerely, Elizabeth Goff, JE Balance/Gait/Function al tests Balance/Special Test Scores Quick DASH Score: 93.1800 Improvement % Improvement: 10 03/04/25 0924 CC: Dr. Jack Wayne MD; No Primary Care Physician Signed Normal [facility] Orthopedic Visit Reporton Orthopedic Visit Report [facility] [address] [place] [address] [address] [place] [address] OFFICE VISIT Date of Service: 02/28/25 MR#: [id number] Acct: [id number] Name: KADI CALZADA Rep #: [id number] : 1970 Provider: Dr. Jack smith MD Age/Sex: 54/F [place] [facility] Status: Signed Intake Vital Signs 01/20/25 09:00 Height 5 ft 5 in Intake Visit Reasons: RIGHT SHOULDER Chief Complaint: Right shoulder Allergies No Known Allergies Allergy (Verified 02/28/25 10:48) Medications ???Medication ???Instructions ???Recorded ???Confirmed ???Type acetaminophen 650 mg 650 mg PO Q12H 02/28/25 02/28/25 H istory tablet,extended release (Tylenol 8 Hour) ibuprofen 200 mg capsule 600 mg PO Q6H PRN 02/28/25 5 History PFSH Medical History 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 Jack Wayne MD 02/28/25 1043. Part of today???s visit was documented by [ ], acting as scribe. KADI CALZADA is a 54 year old F here today for FU R shoulder pain, MRI showing tendinosis and ACJ arthrosis, no tear. 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 Patient still having quite a bit of shoulder pain makes it hard to sleep and to use the arm for activities of daily living. Has not been back to work in 6 months now. Has not seen a pain medicine physician or gotten the nerve conduction studies as requested at last visit. Coding Level of Care Code Off vis,est,level 4 Diagnoses Arthrosis of right acromioclavicular joint M19.011 Tendinosis of right rotator cuff M67.813 Right shoulder pain M25.511 Assessment and Plan Assessment and Plan (1) Arthrosis of right acromioclavicular joint: Status: Acute Plan: KADI CALZADA is a 54 year old F here today for FU R shoulder pain, MRI showing tendinosis and ACJ arthrosis, no tear. Work comp. I have given the patient the name of the pain specialist Dr. Arcos. If that visit does not show any more nonsurgical interventions that are possible for the shoulder the neck step may be to consider arthroscopic debridement and subacromial decompression. I will also try to still get the nerve studies of the upper extremity we will have the office look into those things as well. The patient understands will follow-up after that consult. For now no changes to the restrictions. (2) Tendinosis of right rotator cuff: Status: Acute (3) Right shoulder pain: Status: Acute Ortho Exam General General: Yes no acute distress Neurologic: Yes alert and Yes oriented x3 Psychologic: Yes reasonable and appropriate Right Shoulder Skin/Wound: Yes CDI, Yes healed, No ecchymosis, No erythema and No swelling Testing: Positive Hawkin's, Neer's, Speed's, TTP Biceps, TTP AC Joint and empty can; Negative Drop Arm or scapular winging SHOULDER: active fe 40, passive 150, er 25. strength fe 4+, er 4 02/28/25 1101 Date Jack Wayne MD Cosigner Signature: Date (if applicable) CC: [facility] Orthopedic Visit Reporton Orthopedic Visit Report [facility] [address] [place] [address] [address] [place] [address] OFFICE VISIT Date of Service: 01/20/25 MR#: [id number] Acct: [id number] Name: KADI CALZADA Rep #: [id number] : 1970 Provider: Dr. Jack smith MD Age/Sex: 54/F [place] [facility] Status: Signed Intake Vital Signs 09/13/24 09:34 Height 5 ft 5 in Intake Visit Reasons: RIGHT SHOULDER Chief Complaint: Right shoulder Accompanied by: Self Is patient in pain?: Yes Allergies No Known Allergies Allergy (Verified 01/20/25 08:40) Medications ???Medication ???Instructions ???Recorded ???Confirmed ???Type NK 12/09/24 01/20/25 History PFSH Medical History 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 Jack Wayne MD 01/20/25 0810. Part of today???s visit was documented by [ ], acting as scribe. KADI CALZADA is a 54 year old F here today for FU cortisone injection and PT. FU R shoulder pain, MRI showing tendinosis and ACJ arthrosis, no tear. Work comp. 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 Patient still having shoulder pain going down the arm complains about some numbness and tingling down the hand. Has not been worked up for that. Has been off work has been doing physical therapy and now has done injections and therapy multiple rounds without significant improvement. Unable to return back to work. Coding Level of Care Code Off vis,est,level 3 Diagnoses Arthrosis of right acromioclavicular joint M19.011 Tendinosis of right rotator cuff M67.813 Right shoulder pain M25.511 Assessment and Plan Assessment and Plan (1) Arthrosis of right acromioclavicular joint: Status: Acute Plan: KADI CALZADA is a 54 year old F here today for FU cortisone injection and PT. FU R shoulder pain, MRI showing tendinosis and ACJ arthrosis, no tear. Work comp. Patient still having quite a bit of pain and discomfort from the shoulder as well as possibly some radicular symptoms or numbness and tingling in the hand. The pain seems a little bit out of proportion compared to the MRI findings. I will go ahead make a referral to pain medicine specialist as well as nerve conduction studies for the right upper extremity. If these all glove turner and former automatic to be negative and this is simply all from tendinitis of the shoulder could consider an arthroscopic subacromial decompression and debridement. Patient will follow-up after the nerve studies as well as a pain medicine specialist consult. (2) Tendinosis of right rotator cuff: Status: Acute (3) Right shoulder pain: Status: Acute Ortho Exam General General: Yes no acute distress Neurologic: Yes alert and Yes oriented x3 Psychologic: Yes reasonable and appropriate Right Shoulder Skin/Wound: Yes CDI, Yes healed, No ecchymosis, No erythema and No swelling Testing: Positive Hawkin's, Neer's, Speed's, TTP Biceps, TTP AC Joint and empty can; Negative Drop Arm or scapular winging SHOULDER: active fe 40, passive 150, er 25. strength fe 4+, er 4 01/20/25 0901 Date Jack Perlaignkarissa Signature: Date (if applicable) CC: [facility] PT D/C Summary (1)on 025 PT D/C Summary (1) [facility] [address] [place] [address] / REHABILITATION SERVICES DISCHARGE SUMMARY MR#: [id number] Acct: [id number] Name: KADI CALZADA Rep #: [id number] : 1970 54 From: Elizabeth Goff MPT Referring Dr.: Dr. Jack Wayne MD Status: R EG RCR Insurance: [facility] SELF PAY INSURANCE Discharge Summary D/C summary: It has been my pleasure to treat KADI CALZADA referred by Dr. Jack Wayne MD, with the diagnosis of R shoulder pain/ MRI shows tendinosis and ACJ arthrosis for a total of 13 visit(s). Discharge Date: Please see the following information for a summary of their discharge status. Subjective Subjective: Pt reports that when she straightens her elbow she gets pain up the arm. She gets spasm. She can not rest on her elbow or she gets the pain If she extends then she gets the tingling in her fingers. It hurts in anterior shoulder and shoulder blade pain with shoulder movement. There is no position where there is no pain. She feels like her arm will fall off when she hangs it down. She reports that heat helps and when she leaves here without the heat it hurts more. She can not do anything because of the pain. Even when she tries to grab things with her hands it get pain. Appt with is Monday. Pain R shoulder pain: Pain Intensity (Out of 10): 7 Overall Improvement % Improvement: 10 Objective Objective/Function: Shoulder AROM: R shoulder flex 50 and L 100 degrees R shoulder ABD 60 and L 60 R shoulder IR greater trochanter and L to PSIS R shoulder ER 10 and L 22) Goals Goal 1:: I HEP Goal Progress: Progressing Goal 2:: Increase R shoulder AROM (at the time of eval: Shoulder AROM: R shoulder flex 60 and L 100 degrees R shoulder ABD 50 and L 60 R shoulder IR greater trochanter and L to PSIS R shoulder ER 10 and L 22) Goal Progress: Not Progressing Goal 3:: Decrease R shoulder pain to 2/10 with ADL's Goal Progress: Not Progressing Goal 4:: Be able to use her R hand to wash and do her hair Goal Progress: Not Progressing Plan Plan: DC PT. Pt has no improvement in pain or ROM. She has a Dr appt on Monday D/C Information d/c sentence: If there are questions or concerns regarding this patient's physical therapy, please feel free to call me at [phone]. Thank you for the referral of this patient. Sincerely, JE Billings Balance/Gait/Function al tests Balance/Special Test Scores Quick DASH Score: 93.1800 Improvement % Improvement: 01/15/25 1032 CC: Dr. Jack Wayne MD; No Primary Care Physician Signed [facility] Inital Evaluation (1) - PTon 12-09-2024 Inital Evaluation (1) - PT [facility] [address] [place] [id number] / REHABILITATION SERVICES INITIAL EVALUATION MR#: [id number] Acct: [id number] Name: KADI CALZADA Rep #: [id number] : 1970 54 From: Elizabeth WOOTEN Referring Dr.: Dr. Jack Wayne MD Status: R EG RCR Insurance: [facility] SELF PAY INSURANCE Patient's Visit Information Visit Information Visit Information: KADI CALZADA is a 54 year old F referred to Physical Therapy by Dr. Jack Wayne MD with a diagnosis of R shoulder pain/ MRI shows tendinosis and ACJ arthrosis. Date of Evaluation: 12/09/24 Physical Therapist: JE Billings Visit Plan Frequency: 2-3x /Week Duration: 6 Weeks Plan: Pt does not speak Mohawk well and might need leadership intern alberto 2-3X/ week for 6 weeks until 01-16-25 for postural and scapular strength, PROM/AAROM and progressing to AROM and light strengthening of the RC when ROM improves and pain decreases with HEP and modalities as needed. Did not give HEP as pt just had a cortisone shot this morning and was still in a lot of pain Subjective Subjective: Pt speaks very min Mohawk. Had to do [employer] leadership intern. She got a shot in her shoulder today. She had surgery 4 years ago on her rotator cuff. she had to stop working in August due to the pain in the shoulder. Her Dr said 6 weeks of PT and then he would see her again. She demonstrated that she can not lift her R arm or horizontally abduct her R arm. Her fingers are sleeping. She has posterior shoulder pain and sleeps in a chair and can not sleep in the bed. She is Right handed. It is hard for her to get comfortable and she moves around a lot to get comfortable. She has pain to push her arm out in the front etc. She has been dropping things. She does have neck pain and down the R shoulder. It hurts to move her neck and gets pain with it. Pain R shoulder pain: Pain Intensity (Out of 10): 9 Objective Objective: R handed Shoulder AROM: R shoulder flex 60 and L 100 degrees R shoulder ABD 50 and L 60 R shoulder IR greater trochanter and L to PSIS R shoulder ER 10 and L 22 Posture: rounded shoulders and increased PPT PROM: painful with PROM all planes and can only get to approx 50 degrees elevation and ER to approx 45 degrees Pt sits and lays with R shoulder protracted Did not test strength due to high level of pain and just got a cortisone injection Balance/Special Test Scores Quick DASH Score: 93.1800 Goals Goal 1:: I HEP Goal Time Frame: 6-8 Weeks Goal 2:: Increase R shoulder AROM (at the time of eval: Shoulder AROM: R shoulder flex 60 and L 100 degrees R shoulder ABD 50 and L 60 R shoulder IR greater trochanter and L to PSIS R shoulder ER 10 and L 22) Goal Time Frame: 6-8 Weeks Goal 3:: Decrease R shoulder pain to 2/10 with ADL's Goal Time Frame: 6-8 Weeks Goal 4:: Be able to use her R hand to wash and do her hair Goal Time Frame: 6-8 Weeks Rehabilitation Potential Rehabilitation Potential: Good Anticipated Interventions Patient/Client Instruction: Educate patient on: Condition and Plan of Care For the Purpose of:: To decrease pain, To decrease swelling/inflammation , To increase ROM, To improve nutrient delivery to tissue, To improve muscle performance and motor function, To improve ability to perform ADL's, To increase tolerance to activity/condition/po sition, To improve performance and independence with ADL's, To decrease level of supervision to perform tasks, To improve ability of physical actions for home/community/work/l eisure, To improve health of tissue, To decrease soft tissue restriction and To increase flexibility/ROM Therapeutic Exercise to Include: Strength training, Postural training, Flexibilty training, Neuromotor development, Passive ROM, Active ROM and Scapular Strength/Stabilizatio n For the Purpose of:: To decrease pain, To decrease swelling/inflammation , To increase ROM, To improve nutrient delivery to tissue, To improve muscle performance and motor function, To improve ability to perform ADL's, To increase tolerance to activity/condition/po sition, To improve performance and independence with ADL's, To decrease level of supervision to perform tasks, To improve ability of physical actions for home/community/work/l eisure, To improve gait and locomotor functions, To improve health of tissue, To decrease soft tissue restriction and To increase flexibility/ROM For the Purpose of:: To decrease pain, To increase ROM, To improve nutrient delivery to tissue, To improve muscle performance and motor function, To improve ability to perform ADL's, To increase tolerance to activity/condition/po sition, To improve performance and independence with ADL's, To decrease level of supervision to perform tasks, To improve ability of physical actions for home/community/work/l (more content not included)... [facility] Orthopedic Visit Reporton Orthopedic Visit Report [facility] [address] [place] [address] OFFICE VISIT Date of Service: 12/09/24 MR#: [id number] Acct: [id number] Name: KADI CALZADA Rep #: [id number] : 1970 Provider: Dr. Jack smith MD Age/Sex: 54/F Location[place] [facility] Status: Signed with Addenda ADDENDUM by Taylor Wall on 12/09/24 at 0914 Office Procedure Documentation entered by Taylor Wall 12/09/24 09:14: Ortho Injections Injections Yes Subacromial Injection Right Is this a patient provided medication?: No Details: Obtained consent for injection. Under sterile conditions, injected the patients right shoulder with 2mL Kenalog and 4mL Bupivacaine. The patient tolerated the injection well without any noted complication. Patient should call our office if redness develops, pain worsens or if they have any concerns. Office Meds Kenalog 40 mg/mL suspension for injection Performing Provider: Jack Wayne MD Performing Location: [facility] Administered by: Jack Wayne MD on 12/09/24 09:10 Dose Route Admin Location Dispensed Lot Number Expiration Date [facility] Jn ufacturer 40 mg intra-articular Right shoulder 1 mL [id number] 06/06/26 1669-3401-19 [facility] Comments: Bupivacaine 0.25% 4mL Lot # [id number]. Exp 09/2025. [facility] 4487-3815-35 Date cc: * Signed Intake Vital Signs 09/13/24 09:34 Height 5 ft 5 in Intake Visit Reasons: right shoulder Chief Complaint: Right shoulder Is patient in pain?: Yes (right shoulder) Pain scale (1-10): 8 Allergies No Known Allergies Allergy (Verified 12/09/24 08:57) Medications ???Medication ???Instructions ???Recorded ???Confirmed ???Type NK 12/09/24 12/09/24 History PFSH Medical History Arthrosis of right acromioclavicular joint Tendinosis of right rotator cuff Right shoulder pain Surgical History S/P right rotator cuff repair Social History Smoking Status: Never smoker HPI right shoulder Details: This documentation accurately reflects the service provided and the decisions made by me, Dr. Jack Wayne MD 12/09/24 0803. Part of today???s visit was documented by [ ], acting as scribe. KADI CALZADA is a 54 year old F here today for FU R shoulder pain, MRI showing tendinosis and ACJ arthrosis, no tear. work comp claim. injection was approved, so will proceed today. 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 started PT. Coding Level of Care Code Attention [place] Diagnoses Arthrosis of right acromioclavicular joint M19.011 Tendinosis of right rotator cuff M67.813 Right shoulder pain M25.511 Comment [id number] and CPT inject major joint Assessment and Plan Assessment and Plan (1) Arthrosis of right acromioclavicular joint: Status: Acute Plan: KADI CALZADA is a 54 year old F here today for FU R shoulder pain, MRI showing tendinosis and ACJ arthrosis, no tear. work comp claim. injection was approved, so will proceed today. FU 6 weeks. no change to med co 14. Pros and cons risks and benefits of a right shoulder subacromial steroid injection were discussed. Patient wished to proceed. Risks include but not limited to infection, pain, stiffness, damage to other structures, neurovascular injury, wear further tear of the tendon and other structures such as the skin, bleeding, allergic reaction, acute flare reaction and other risks. Obtained informed consent for injection. Posterior lateral aspect of the shoulder was prepped with chlorhexidine solution allowed to thoroughly dry over 3 minutes. Used Gebauer spray per bottle instructions. Using sterile technique, injected the right subacromial joint with a 4cc 0.25% bupivacaine and 2cc 40 mg/mL kenalog. Bandage placed. The patient tolerated the injection well without any noted complication. Red flag symptoms were discussed such as redness, swelling, discharge, drainage, pain worsens or if they have any concerns to present to the ED or to call the clinic immediately. (2) Tendinosis of right rotator cuff: Status: Acute (3) Right shoulder pain: Status: Acute Ortho Exam General General: Yes no acute distress Neurologic: Yes alert and Yes oriented x3 Psychologic: Yes reasonable and appropriate Right Shoulder Skin/Wound: Yes CDI, Yes healed, No ecchymosis, No erythema and No swelling 12/09/24 0906 Date Jack Wayne MD Cosigner Signature: Date (if applicable) CC: [facility] Orthopedic Visit Reporton Orthopedic Visit Report [facility] [address] [place] [address] 5 [place] [address] OFFICE VISIT Date of Service: 11/18/24 MR#: [id number] Acct: [id number] Name: KADI CALZADA Rep #: [id number] : 1970 Provider: Dr. Jack smith MD Age/Sex: 53/F Location[place] [facility] Status: Signed Intake Vital Signs 09/13/24 09:34 Height 5 ft 5 in Intake Visit Reasons: RIGHT SHOULDER Chief Complaint: Right shoulder Is patient in pain?: Yes Allergies No Known Allergies Allergy (Verified 11/18/24 08:03) [facility] Medical History 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 Jack Wayne MD 11/18/24 0758. Part of today???s visit was documented by [ ], acting as scribe. KADI CALZADA is a 53 year old F here today for FU R shoulder pain, MRI showing tendinosis and ACJ arthrosis, no tear. work comp claim. 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 can't do anything in the house, worse with motion and lifting. the shoulder hurts really badly. can't do the hair. has been off work. would be amenable to another round of PT. taking ibuprofen to sleep. painful posteriorly. Ortho Exam General General: Yes no acute distress Neurologic: Yes alert and Yes oriented x3 Psychologic: Yes reasonable and appropriate Right Shoulder Skin/Wound: Yes CDI, Yes healed, No ecchymosis, No erythema and No swelling Testing: Positive Hawkin's, Neer's, Speed's, TTP Biceps, TTP AC Joint and empty can; Negative Drop Arm or scapular winging SHOULDER: active fe 90, passive 125, er 25. strength fe 4+, er 4 Coding Level of Care Code Off vis,est,level 3 Diagnoses Arthrosis of right acromioclavicular joint M19.011 Tendinosis of right rotator cuff M67.813 Right shoulder pain M25.511 Assessment and Plan Assessment and Plan (1) Arthrosis of right acromioclavicular joint: Status: Acute Plan: KADI CALZADA is a 53 year old F here today for FU R shoulder pain, MRI showing tendinosis and ACJ arthrosis, no tear. work comp claim. The pain seems to be worse with any sort of motion. The patient does not seem to be able to complete their job duties with the repetitive pushing and pulling of the upper extremity I will still follow-up [employer] 14 to that effect to be off work at this point. Patient would like to pursue more conservative management in the form of physical therapy and cortisone injection I will submit a new C9 for him to get that approved. The other option would be oral medication which the patient is taking anti-inflammatories as well as surgery in the form of right shoulder arthroscopy subacromial decompression possible distal clavicle excision and debridement. Patient understands and will follow-up once the cortisone injection is approved. (2) Tendinosis of right rotator cuff: Status: Acute (3) Right shoulder pain: Status: Acute 11/18/24 0824 Date Jack Kumari Signature: Date (if applicable) CC: [facility] PT D/C Summary (1)on 024 PT D/C Summary (1) [facility] [address] [place] [address] / REHABILITATION SERVICES DISCHARGE SUMMARY MR#: [id number] Acct: [id number] Name: KADI CALZADA Rep #: [id number] : 1970 53 From: Hernandez Gupta PT, Cert. T, OCS Referring Dr.: Dr. Jack Wayne MD Status: R EG RCR Insurance: [facility] SELF PAY INSURANCE Discharge Summary D/C summary: It has been my pleasure to treat KADI CALZADA referred by Dr. Jack Wayne MD, with the diagnosis of PAIN IN RIGHT SHOULDER ,SPECIFIED POSTPROCEDURAL STATES for a total of 22 visit(s). Discharge Date: Please see the following information for a summary of their discharge status. Subjective Subjective: pain is same not better Pain Right Shoulder: Pain Intensity (Out of 10): 7 Overall Improvement % Improvement: 0 Objective Objective/Function: POSTURE: rounded shoulder head forward PALPATION: tender AC region ,long head bicep NEURO: c/o paresthesia/tingling below elbow AROM: right shoulder flexion 110 degrees pain,abduction 120 degrees in scapular plane ,ER 85m degrees ,IR S1 PROM: shoulder flexion /abduction 150 degrees CAPSULAR RESTRICTION: G-H mild capsular with LESS guarding MMT: ( peak force) infraspinatus 10,2 ,subscapularis 14.7 ,supraspinatus 8.1 PAIN ,deltoid 5.1 pain Goals Goal 1:: Patient to be I with HEP shoulder Goal 2:: Patient to improve AROM shoulder flexion and abduction 140 degrees > and reach behind back to perform ADLS Goal 3:: Patient to improve peak force RTC and deltoid by 5-10# strength function and job demands. Goal 4:: Patient to improve quick dash by 5 points to QOL and function with activities above 90 degrees Goal 5:: Patient to demonstrate 50% improvement with ADLS and RTW Plan Plan: RTD MAY NEED MRI PER LAST NOTE OF PT THEN IF NOT BETTER MAY NEED MRI D/C Information d/c sentence: If there are questions or concerns regarding this patient's physical therapy, please feel free to call me at [phone]. Thank you for the referral of this patient. Sincerely, Hernandez Gupta, PT, Cert MDT, OCS Balance/Gait/Function al tests Balance/Special Test Scores Quick DASH Score: 72.5000 Improvement % Improvement: 0 10/09/24 1446 CC: Dr. Jack Wayne MD; No Primary Care Physician SAM Signed [facility] Orthopedic Visit Reporton Orthopedic Visit Report [facility] [address] [place] [address] 5 [place] [address] OFFICE VISIT Date of Service: 09/16/24 MR#: [id number] Acct: [id number] Name: KADI CALZADA Rep #: [id number] : 1970 Provider: Dr. Jack smith MD Age/Sex: 53/F Location[place] [facility] Status: Signed Intake Vital Signs 04/04/24 08:19 09/13/24 09:34 Height 5 ft 5 in 5 ft 5 in Intake Visit Reasons: RIGHT SHOULDER Chief Complaint: Right shoulder Accompanied by: Self Is patient in pain?: Yes (right shoulder) Pain scale (1-10): 6 Allergies No Known Allergies Allergy (Verified 09/16/24 09:37) Medications ???Medication ???Instructions ???Recorded ???Confirmed ???Type prednisone 5 mg tablets in a dose See Rx Instructions PO PER PKG DIR 09/13/24 09/16/24 Rx pack pain #48 tabs PFSH Medical History 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 Jack Wayne MD 09/16/24 0934. Part of today???s visit was documented by [ ], acting as scribe. KADI CALZADA is a 53 year old F here today for follow-up right shoulder pain visit to fill out some paperwork for disability Coding Level of Care Code No Charge Diagnoses Arthrosis of right acromioclavicular joint M19.011 Tendinosis of right rotator cuff M67.813 Right shoulder pain M25.511 Assessment and Plan Assessment and Plan (1) Arthrosis of right acromioclavicular joint: Status: Acute Plan: KADI CALZADA is a 53 year old F here today for follow-up right shoulder pain visit to fill out some paperwork for disability. I filled out the disability paperwork retained a copy gave the patient a copy and they will keep the scheduled follow-up plan (2) Tendinosis of right rotator cuff: Status: Acute (3) Right shoulder pain: Status: Acute 09/16/24 0957 Date Jack Kumari Signature: Date (if applicable) CC: Normal [facility] Orthopedic Visit Reporton Orthopedic Visit Report [facility] [address] [place] [address] OFFICE VISIT Date of Service: 09/13/24 MR#: [id number] Acct: [id number] Name: KADI CALZADA Rep #: [id number] : 1970 Provider: Dr. 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 Jack Wayne MD 09/13/24 6611. Part of today???s visit was documented by [ ], acting as scribe. KADI CALZADA is a 53 year old F here today for FU right shoulder MRI. Patient still having quite a bit of pain on the lateral aspect of the shoulder cannot even clean her own house. Has been off work unable to work due to the physically demanding nature of the job and shoulder pain quite a bit of soreness with lifting above 90 degrees. Supplemental Info [facility] Imaging Services [employer] [place], [place] [id number] Upper Ext Joint Only(Routine) MR#: [id number] Acct: [id number] Name: KADI CALZADA Rep #: [id number] : 1970 F 53 From: Fabricio Cabrera MD PCP: Care Physician,No Primary Status: REG CLI Study: Upper Ext Joint Only(Routine) Date of Exam: 09/10/24 Exam# [id number] Ordering Dr: Jack Wayne MD [id number] STUDY: MRI RIGHT SHOULDER REASON FOR EXAM: Female, 53 years old. Pain. TECHNIQUE: Standardized fat and water weighted pulse sequences were obtained in all 3 orthogonal planes. COMPARISON: Right shoulder MRI dated 02/14/2020. FINDINGS: There are postoperative changes related to prior rotator cuff repair surgery, with new anchors in the humeral head. There is supraspinatus, infraspinatus, and subscapularis tendinosis without a full-thickness tear. Normal teres minor tendon. There is minimal atrophy and fatty infiltration of the supraspinatus and infraspinatus muscles. Normal subscapularis muscle. Normal teres minor muscle. Normal glenohumeral articulation. Intact humeral head and visualized proximal humerus. Normal biceps labral complex. Normal intracapsular long biceps tendon. Normal labrum. Normal capsulo-ligamentous complex. Normal rotator interval. There is hypertrophic acromioclavicular arthrosis, with inferior osteophyte formation, with mild effacement of the supraspinatus myotendinous junction (coronal T2 series 6 images 12-14). There is a Type II morphology (curved), with a neutral orientation. There is trace subacromial-subdeltoi d bursal fluid. Normal visualized coracohumeral and coracoacromial ligaments. Normal quadrilateral space. Normal axillary space. Normal deltoid muscle. Normal trapezius muscle. MRI/Upper Ext Joint Only(Routine) IMPRESSION: Supraspinatus, infraspinatus, and subscapularis tendinosis without a full-thickness rotator cuff tear. Minimal atrophy and fatty infiltration of the supraspinatus and infraspinatus muscles. Hypertrophic acromioclavicular arthrosis, with inferior osteophyte formation, with mild effacement of the supraspinatus myotendinous junction. Minimal subacromial-subdeltoi d bursitis. Electronically Signed: Fabricio Cabrera MD at 12:28 EST , I independently reviewed the imaging. Concur with radiologist report. Coding Level of Care Code Off vis,est,level 3 Diagnoses Right shoulder pain M25.511 Tendinosis of right rotator cuff M67.813 Arthrosis of right acromioclavicular joint M19.011 Assessment and Plan Assessment and Plan (1) Right (more content not included)... Normal [facility] Upper Ext Joint Only(Routine )on 09-10-2024 Upper Ext Joint Only(Routine) [facility] Imaging Services [address] [place] [address] Upper Ext Joint Only(Routine) MR#: [id number] Acct: [id number] Name: KADI CALZADA Rep #: [id number] : 1970 F 53 From: Fabricio Cabrera MD PCP: Care Physician,No Primary Status: REG CLI Study: Upper Ext Joint Only(Routine) Date of Exam: 11/10/23 Exam# [id number] Ordering Dr: Jack Wayne MD [id number] STUDY: MRI RIGHT SHOULDER REASON FOR EXAM: Female, 53 years old. Pain. TECHNIQUE: Standardized fat and water weighted pulse sequences were obtained in all 3 orthogonal planes. COMPARISON: Right shoulder MRI dated 02/14/2020. FINDINGS: There are postoperative changes related to prior rotator cuff repair surgery, with new anchors in the humeral head. There is supraspinatus, infraspinatus, and subscapularis tendinosis without a full-thickness tear. Normal teres minor tendon. There is minimal atrophy and fatty infiltration of the supraspinatus and infraspinatus muscles. Normal subscapularis muscle. Normal teres minor muscle. Normal glenohumeral articulation. Intact humeral head and visualized proximal humerus. Normal biceps labral complex. Normal intracapsular long biceps tendon. Normal labrum. Normal capsulo-ligamentous complex. Normal rotator interval. There is hypertrophic acromioclavicular arthrosis, with inferior osteophyte formation, with mild effacement of the supraspinatus myotendinous junction (coronal T2 series 6 images 12-14). There is a Type II morphology (curved), with a neutral orientation. There is trace subacromial-subdeltoi d bursal fluid. Normal visualized coracohumeral and coracoacromial ligaments. Normal quadrilateral space. Normal axillary space. Normal deltoid muscle. Normal trapezius muscle. MRI/Upper Ext Joint Only(Routine) IMPRESSION: Supraspinatus, infraspinatus, and subscapularis tendinosis without a full-thickness rotator cuff tear. Minimal atrophy and fatty infiltration of the supraspinatus and infraspinatus muscles. Hypertrophic acromioclavicular arthrosis, with inferior osteophyte formation, with mild effacement of the supraspinatus myotendinous junction. Minimal subacromial-subdeltoi d bursitis. Electronically Signed: Fabricio Cabrera MD at 12:28 EST Reading Location ID and State: [facility] / [place] , Service support , CC: Dr. Jack Wayne MD; No Primary Care Physician Door Captain: Signed Normal [facility] Orthopedic Visit Reporton Orthopedic Visit Report [facility] [address] [place] [address] OFFICE VISIT Date of Service: 08/05/24 MR#: [id number] Acct: [id number] Name: KADI CALZADA Rep #: [id number] : 1970 Provider: Dr. Jack smith MD Age/Sex: 53/F [place] [facility] [email or web address] Status: Signed Intake Vital Signs 04/04/24 08:19 Height 5 ft 5 in Weight: 186 lb 8 oz BMI 31.0 Intake Visit Reasons: RIGHT SHOULDER Accompanied by: Self Is patient in pain?: Yes Pain scale (1-10): 8 Allergies No Known Allergies Allergy (Verified 08/05/24 14:41) Medications ???Medication ???Instructions ???Recorded ???Confirmed ???Type ibuprofen 200 mg capsule 200 mg PO Q6H PRN 12/01/20 08/05/24 History PFSH Medical History Right shoulder pain Surgical History S/P right rotator cuff repair Social History Smoking Status: Never smoker HPI RIGHT SHOULDER Details: This documentation accurately reflects the service provided and the decisions made by me, Dr. Jack Wayne MD 08/05/24 4896. Part of today???s visit was documented by [ ], acting as scribe. KADI CALZADA is a 53 year old F here today for FU R shoulder pain. Did PT. still bad at night, feels inflamed. feels the same. discomfort. been taking nsaids. did do the PT, finished on the but it did not help with the pain, still quite sore. worse at night and numbing sensation. during the day worse with holding the hand down at the side of the body. 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 injection about 3 months ago but now the pain has returned, worse with activity. 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 No radiopaque foreign body. BONES/JOINTS: No acute fracture or subluxation.. Normal alignment. Preservation of the joint space.. Subchondral cystic changes in the humeral head and greater tuberosity not seen on the previous exam. Previously noted soft tissue calcification is not seen. Degenerative spur is seen in this region. RAD/Shoulder min 2 Views IMPRESSION: 1. Degenerative changes in the humeral head. 2. No evidence of acute fracture or dislocation. Electronically Signed: Asim Bangura MD at 14:25 EDT , Coding Level of Care Code Off vis,est,level 3 Diagnoses Right shoulder pain M25.511 S/P right rotator cuff repair Z98.890 Assessment and Plan Assessment and Plan (1) Right shoulder pain: Status: Acute Plan: 53-year-old female with right shoulder pain. Failed PT now and conservative mgt including cortisone injection. She is 4 years postop rotator cuff repair there is repair with some weakness this could be a re-tear or tendinosis tendinitis bursitis overuse) syndrome or other problems about the shoulder problems of the biceps. Will order an MRI and FU after. Will change to med co 14 to include more activity restrictions. (2) S/P right rotator cuff repair: Status: Acute Ortho Exam General General: Yes no acute distress Neurologic: Yes alert and Yes oriented x3 Psychologic: Yes reasonable and appropriate Right Shoulder Skin/Wound: Yes CDI, Yes healed, No ecchymosis, No erythema and No swelling Testing: Positive Hawkin's, Neer's, Speed's, TTP Biceps, TTP AC Joint and empty can; Negative Drop Arm or scapular winging SHOULDER: active fe 90, passive 125, er 25. strength fe 4+, er 4 08/05/24 1503 Date Jack Wayne MD [facility] Signature: Date (if applicable) CC: Normal [facility] URTS1ah 03-21-2022 Vitamin B6 Lvl 102.1 nmol/L Normal 20.0-125.0 [facility] ([place]) Comment on above: Result Comment: INTE RPRETIVE INFORMATION: Vitamin B6 (Pyridoxal 5-Phosphate) Pyridoxal 5'-phosphate measured in a specimen collected following an 8-hour or overnight fast accurately indicates vitamin B6 nutritional status. Non-fasting specimen concentration reflects recent vitamin intake. This test was developed and its performance characteristics determined by [facility]. It has not been cleared or approved by the [place] Food and Drug Administration. This test was performed in a CLIA certified laboratory and is intended for clinical purposes. Performed By: [facility] [address] [place] [id number] Textile Conversion Manager: Radha Whitmore MD Performed By: #### C OVD19 #### [address] [address] .Auto Diffon 03-14-2022 Basophil, Absolute 0.00 10 3/mcL Normal 0.00-0.19 [facility] ([place]) Comment on above: Performed By: #### C BC, ADIFF, ANEU, CMP, LIPID, GFR, TSH, FT4, A1C, VITB6 #### [address] [address] #### B12, HCV1 #### [address] [address] Basophils/100 WBC (Bld) 0.6 % Normal 0.0-2.5 [facility] ([place]) Comment on above: Performed By: #### C BC, ADIFF, ANEU, CMP, LIPID, GFR, TSH, FT4, A1C, VITB6 #### [place] [address] #### B12, HCV1 #### [address] [address] Eosinophil, Absolute 0.20 10 3/mcL Normal 0.00-0.40 [facility] ([place]) Comment on above: Performed By: #### C BC, ADIFF, ANEU, CMP, LIPID, GFR, TSH, FT4, A1C, VITB6 #### [address] [address] #### B12, HCV1 #### [address] [address] Eosinophils/100 WBC (Bld) 2.9 % Normal 0.0-7.0 [facility] ([place]) Comment on above: Performed By: #### C BC, ADIFF, ANEU, CMP, LIPID, GFR, TSH, FT4, A1C, VITB6 #### [address] [address] #### B12, HCV1 #### [address] [address] Lymphocyte, Absolute 2.30 10 3/mcL Normal 0.77-3.85 [facility] ([place]) Comment on above: Performed By: #### C BC, ADIFF, ANEU, CMP, LIPID, GFR, TSH, FT4, A1C, VITB6 #### [address] [address] #### B12, HCV1 #### [address] [address] Lymphocytes/100 WBC (Bld) 30.0 % Normal 10.0-50.0 [facility] ([place]) Comment on above: Performed By: #### C BC, ADIFF, ANEU, CMP, LIPID, GFR, TSH, FT4, A1C, VITB6 #### [address] [address] #### B12, HCV1 #### [address] [address] Monocyte, Absolute 0.50 10 3/mcL Normal 0.15-1.00 [facility] ([place]) Comment on above: Performed By: #### C BC, ADIFF, ANEU, CMP, LIPID, GFR, TSH, FT4, A1C, VITB6 #### [address] [address] #### B12, HCV1 #### [address] [address] Monocytes/100 WBC (Bld) 7.1 % Normal 1.7-13.0 [facility] ([place]) Comment on above: Performed By: #### C BC, ADIFF, ANEU, CMP, LIPID, GFR, TSH, FT4, A1C, VITB6 #### [address] [address] #### B12, HCV1 #### [address] [address] Neutrophils/100 WBC (Bld) 59.4 % Normal 37.0-80.0 [facility] ([place]) Comment on above: Performed By: #### C BC, ADIFF, ANEU, CMP, LIPID, GFR, TSH, FT4, A1C, VITB6 #### [address] [address] #### B12, HCV1 #### [address] [address] .GFRon 03-14-2022 GFR 133 ml/min/1.73sqm Normal [facility] ([place]) Comment on above: Result Comment: GFR Population [...] LIPID, GFR, TSH, FT4, A1C, VITB6 #### [address] [address] #### B12, HCV1 #### [address] [address] GFR Non- 110 ml/min/1.73sqm Normal [facility] ([place]) Comment on above: Result Comment: GFR Population [...] LIPID, GFR, TSH, FT4, A1C, VITB6 #### [place] [id number] #### B12, HCV1 #### [place] [address] .NEUABSon 03-14-2022 Neutrophil, Absolute 4.50 10 3/mcL Normal 2.85-6.16 [facility] ([place]) Comment on above: Performed By: #### C BC, ADIFF, ANEU, CMP, LIPID, GFR, TSH, FT4, A1C, VITB6 #### [address] [address] #### B12, HCV1 #### [place] [id number] A1Con 03-14-2022 HbA1c (Bld) [Mass fraction] 5.8 % Normal 4.3-6.4 [facility] ([place]) Comment on above: Performed By: #### C OVD19 #### [address] [address] B12on 03-14-2022 Cobalamin (Vitamin B12) [Mass/Vol] 1202 pg/mL High 211-911 [facility] ([place]) Comment on above: Performed By: #### C OVD19 #### [address] [address] CBCon 03-14-2022 Erythrocyte distribution width (RBC) [Ratio] 13.7 % Normal 11.5-14.5 [facility] ([place]) Comment on above: Performed By: #### C BC, ADIFF, ANEU, CMP, LIPID, GFR, TSH, FT4, A1C, VITB6 #### [place] [address] #### B12, HCV1 #### [place] [address] Hematocrit (Bld) [Volume fraction] 37.7 % Normal 37.0-47.0 [facility] ([place]) Comment on above: Performed By: #### C BC, ADIFF, ANEU, CMP, LIPID, GFR, TSH, FT4, A1C, VITB6 #### [place] [address] #### B12, HCV1 #### [place] [address] Hgb 12.6 G/dL Normal 12.0-16.0 [facility] ([place]) Comment on above: Performed By: #### C BC, ADIFF, ANEU, CMP, LIPID, GFR, TSH, FT4, A1C, VITB6 #### [place] [address] #### B12, HCV1 #### [place] [address] MCH (RBC) [Entitic mass] 29.0 pg Normal 27.0-31.2 [facility] ([place]) Comment on above: Performed By: #### C BC, ADIFF, ANEU, CMP, LIPID, GFR, TSH, FT4, A1C, VITB6 #### [place] [address] #### B12, HCV1 #### [place] [address] MCHC 33.3 G/dL Normal 33.0-37.0 [facility] ([place]) Comment on above: Performed By: #### C BC, ADIFF, ANEU, CMP, LIPID, GFR, TSH, FT4, A1C, VITB6 #### [place] [address] #### B12, HCV1 #### [address] [address] MCV (RBC) [Entitic vol] 86.9 fL Normal 80.0-94.0 [facility] ([place]) Comment on above: Performed By: #### C BC, ADIFF, ANEU, CMP, LIPID, GFR, TSH, FT4, A1C, VITB6 #### [place] [address] #### B12, HCV1 #### [address] [address] Platelet 193 10 3/mcL Normal 130-400 [facility] ([place]) Comment on above: Performed By: #### C BC, ADIFF, ANEU, CMP, LIPID, GFR, TSH, FT4, A1C, VITB6 #### [place] [address] #### B12, HCV1 #### [place] [address] Platelet mean volume (Bld) [Entitic vol] 10.5 fL High 7.4-10.4 [facility] ([place]) Comment on above: Performed By: #### C BC, ADIFF, ANEU, CMP, LIPID, GFR, TSH, FT4, A1C, VITB6 #### [place] [address] #### B12, HCV1 #### [place] [address] RBC 4.34 10 6/mcL Normal 4.20-5.40 [facility] ([place]) Comment on above: Performed By: #### C BC, ADIFF, ANEU, CMP, LIPID, GFR, TSH, FT4, A1C, VITB6 #### [place] [address] #### B12, HCV1 #### [address] [address] WBC 7.60 10 3/mcL Normal 4.60-10.80 [facility] ([place]) Comment on above: Performed By: #### C BC, ADIFF, ANEU, CMP, LIPID, GFR, TSH, FT4, A1C, VITB6 #### [address] [address] #### B12, HCV1 #### [place] [address] CMPon 03-14-2022 Albumin Level 3.8 G/dL Normal 3.5-5.0 [facility] ([place]) Comment on above: Performed By: #### C BC, ADIFF, ANEU, CMP, LIPID, GFR, TSH, FT4, A1C, VITB6 #### [place] [address] #### B12, HCV1 #### [place] [address] Albumin/Globulin [Mass ratio] 1.0 {ratio} Low 1.1-2.5 [facility] ([place]) Comment on above: Performed By: #### C BC, ADIFF, ANEU, CMP, LIPID, GFR, TSH, FT4, A1C, VITB6 #### [place] [address] #### B12, HCV1 #### [place] [address] ALP [Catalytic activity/Vol] 84 U/L Normal 40-135 [facility] ([place]) Comment on above: Performed By: #### C BC, ADIFF, ANEU, CMP, LIPID, GFR, TSH, FT4, A1C, VITB6 #### [address] [address] #### B12, HCV1 #### [place] [address] ALT [Catalytic activity/Vol] 27 U/L Normal 14-59 [facility] ([place]) Comment on above: Performed By: #### C BC, ADIFF, ANEU, CMP, LIPID, GFR, TSH, FT4, A1C, VITB6 #### [place] [address] #### B12, HCV1 #### [address] [address] AST [Catalytic activity/Vol] 6 U/L Low 10-40 [facility] ([place]) Comment on above: Performed By: #### C BC, ADIFF, ANEU, CMP, LIPID, GFR, TSH, FT4, A1C, VITB6 #### [place] [address] #### B12, HCV1 #### [address] [address] Bili Total 0.5 mg/dL Normal 0.2-1.0 [facility] ([place]) Comment on above: Result Comment: Use of this assay is not recommended for patients undergoing treatment with eltrombopag due to the potential for falsely elevated results. Performed By: #### C BC, ADIFF, ANEU, CMP, LIPID, GFR, TSH, FT4, A1C, VITB6 #### [place] [address] #### B12, HCV1 #### [place] [id number] BUN/Creatinine Ratio 28 ratio High 7-27 [facility] ([place]) Comment on above: Performed By: #### C BC, ADIFF, ANEU, CMP, LIPID, GFR, TSH, FT4, A1C, VITB6 #### [place] [address] #### B12, HCV1 #### [address] [address] Calcium [Mass/Vol] 8.6 mg/dL Normal 8.4-10.2 [facility] ([place]) Comment on above: Performed By: #### C BC, ADIFF, ANEU, CMP, LIPID, GFR, TSH, FT4, A1C, VITB6 #### [place] [address] #### B12, HCV1 #### [address] [address] Chloride [Moles/Vol] 103 mmol/L Normal 98-107 [facility] ([place]) Comment on above: Performed By: #### C BC, ADIFF, ANEU, CMP, LIPID, GFR, TSH, FT4, A1C, VITB6 #### [address] [address] #### B12, HCV1 #### [address] [address] CO2 [Moles/Vol] 28 mmol/L Normal 22-29 [facility] ([place]) Comment on above: Performed By: #### C BC, ADIFF, ANEU, CMP, LIPID, GFR, TSH, FT4, A1C, VITB6 #### [place] [address] #### B12, HCV1 #### [address] [address] Creatinine [Mass/Vol] 0.58 mg/dL Normal 0.55-1.02 [facility] ([place]) Comment on above: Performed By: #### C BC, ADIFF, ANEU, CMP, LIPID, GFR, TSH, FT4, A1C, VITB6 #### [place] [address] #### B12, HCV1 #### [address] [address] Electrolyte Balance 9.0 mEq/L Normal 4.0-15.0 [facility] ([place]) Comment on above: Performed By: #### C BC, ADIFF, ANEU, CMP, LIPID, GFR, TSH, FT4, A1C, VITB6 #### [address] [address] #### B12, HCV1 #### [address] [address] Globulin 3.7 G/dL Normal [facility] ([place]) Comment on above: Performed By: #### C BC, ADIFF, ANEU, CMP, LIPID, GFR, TSH, FT4, A1C, VITB6 #### [place] [address] #### B12, HCV1 #### [address] [address] Glucose [Mass/Vol] 91 mg/dL Normal 70-105 [facility] ([place]) Comment on above: Performed By: #### C BC, ADIFF, ANEU, CMP, LIPID, GFR, TSH, FT4, A1C, VITB6 #### [address] [address] #### B12, HCV1 #### [address] [address] Potassium [Moles/Vol] 4.1 mmol/L Normal 3.5-5.1 [facility] ([place]) Comment on above: Performed By: #### C BC, ADIFF, ANEU, CMP, LIPID, GFR, TSH, FT4, A1C, VITB6 #### [address] [address] #### B12, HCV1 #### [address] [address] Sodium [Moles/Vol] 140 mmol/L Normal 136-145 [facility] ([place]) Comment on above: Performed By: #### C BC, ADIFF, ANEU, CMP, LIPID, GFR, TSH, FT4, A1C, VITB6 #### [address] [address] #### B12, HCV1 #### [address] [address] Total Protein 7.5 G/dL Normal 6.4-8.2 [facility] ([place]) Comment on above: Performed By: #### C BC, ADIFF, ANEU, CMP, LIPID, GFR, TSH, FT4, A1C, VITB6 #### [address] [address] #### B12, HCV1 #### [address] [address] Urea nitrogen [Mass/Vol] 16 mg/dL Normal 7-18 [facility] ([place]) Comment on above: Performed By: #### C BC, ADIFF, ANEU, CMP, LIPID, GFR, TSH, FT4, A1C, VITB6 #### [address] [address] #### B12, HCV1 #### [address] [address] FT4on 03-14-2022 Free T4 [Mass/Vol] 0.99 ng/dL Normal 0.76-1.46 [facility] ([place]) Comment on above: Performed By: #### C BC, ADIFF, ANEU, CMP, LIPID, GFR, TSH, FT4, A1C, VITB6 #### [address] [address] #### B12, HCV1 #### [place] [id number] HCVon 03-14-2022 Hep C Ab Non-Reactive Normal Non-Reactive [facility] ([place]) Comment on above: Performed By: #### C OVD19 #### [address] [address] Hep C Ab Int Normal [facility] ([place]) Comment on above: Result Comment: Nonr eactive: Samples with a value < 0.80 are considered nonreactive (negative) for antibodies to HCV. A negative test result does not exclude the possibility of exposure to or infection with HCV. HCV antibodies may be undetectable in some stages of the infection and in some clinical conditions. See Interp Performed By: #### C OVD19 #### [address] [address] LABORATORYOrdered By: Latha Watson on 03-14-2022 Albumin BCP dye [Mass/Vol] [...] 03-14-2022 Cholesterol [Mass/Vol] 173 mg/dL Normal 0-200 [facility] [facility] ([place] Comment on above: Result Comment: Chol esterol Reference Interval: Less than 200 Desirable 200-239 Borderline high risk 240 and above High risk Performed By: #### C BC, ADIFF, ANEU, CMP, LIPID, GFR, TSH, FT4, A1C, VITB6 #### [address] [address] #### B12, HCV1 #### [address] [address] Cholesterol in HDL [Mass/Vol] 63 mg/dL High 40-60 [facility] ([place] Comment on above: Performed By: #### C BC, ADIFF, ANEU, CMP, LIPID, GFR, TSH, FT4, A1C, VITB6 #### [address] [address] #### B12, HCV1 #### [address] [address] Cholesterol in LDL [Mass/Vol] 99 mg/dL Normal 0-130 [facility] ([place] Comment on above: Performed By: #### C BC, ADIFF, ANEU, CMP, LIPID, GFR, TSH, FT4, A1C, VITB6 #### [place] [address] #### B12, HCV1 #### [place] [address] Triglyceride [Mass/Vol] 54 mg/dL Normal 0-150 [facility] ([place] Comment on above: Result Comment: Trig lyceride Reference Interval: Less than 150 Normal 150-199 Borderline high risk 200-499 High risk 500 or higher Very high risk Performed By: #### C BC, ADIFF, ANEU, CMP, LIPID, GFR, TSH, FT4, A1C, VITB6 #### [place] [address] #### B12, HCV1 #### [place] [address] TSHon 03-14-2022 TSH Qn 1.84 m[IU]/L Normal 0.36-3.74 [facility] ([place] Comment on above: Performed By: #### C BC, ADIFF, ANEU, CMP, LIPID, GFR, TSH, FT4, A1C, VITB6 #### [place] [address] #### B12, HCV1 #### [place] [address] [id number] 12-10-2021 Date of Onset 20211203 Invalid Interpretation Code [facility] ([place] Comment on above: Performed By: #### C OVD19 #### [address] [address] 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 in Healthcare No Normal [facility] ([place] Comment on above: Performed By: #### C OVD19 #### [place] [address] First Test Unknown Normal [facility] ([place] Comment on above: Performed By: #### C OVD19 #### [address] [address] Hospitalized Unknown Normal [facility] ([place] Comment on above: Performed By: #### C OVD19 #### [address] [address] ICU No Normal [facility] ([place] Comment on above: Performed By: #### C OVD19 #### [address] [address] Not [facility] [place] Comment on above: Performed By: #### C OVD19 #### [address] [address] Resides in Congregate Care Setting No [facility] ([place] Comment on above: Performed By: #### C OVD19 #### [address] [address] SARS-CoV-2 (COVID-19) RNA CHRISTIE+probe Ql (Unsp spec) Negative Normal Negative [facility] ([place] Comment on above: Performed By: #### C OVD19 #### [address] [address] SARS-CoV-2 (COVID-19) RNA CHRISTIE+probe Ql (Unsp spec) Normal [facility] ([place] Comment on above: Result Comment: Nega tive [...] Int Performed By: #### C OVD19 #### [place] [address] [place], [place] [address] Symptomatic as Defined by CDC Yes Normal [facility] ([place] Comment on above: Performed By: #### C OVD19 #### [place] [address] [place], [place] [address] LABORATORYOrdered By: Latha Watson on 12-10-2021 ADMITTED [...] specimens, or inadequate numbers of organisms for amplification.MyWerx SARS-CoV-2 Assay is a Real-Time reverse-transcriptase polymerase [...] 12/10/2021 12:45:53 PM Ordering Provider: LESLIE MEZA [facility] ([place]) Vital Signs Date Time Vital Sign Value Performing Clinician Facility 01-20-2025 09:00-0400 Body height 165.1 cm No Primary Care Physician [facility] 12-10-2021 14:14-0500 Diastolic blood pressure 87 mm[Hg] LESLIE MEZA DO [facility] 12-10-2021 14:14-0500 Heart rate 78 /min LESLIE FROMMELT DO [facility] 12-10-2021 14:14-0500 Respiratory rate 16 /min LESLIE FROMMELT DO [facility] 12-10-2021 14:14-0500 Systolic blood pressure 126 mm[Hg] LESLIE FROMMELT DO [facility] 12-10-2021 12:45-0500 Heart rate 98 /min LESLIE FROMMELT DO [facility] 12-10-2021 12:45-0500 Respiratory rate 16 /min LESLIE FROMMELT DO [facility] 12-10-2021 12:21-0500 Body temperature 98.24 [degF] LESLIE FROMMELT DO [facility] 12-10-2021 12:21-0500 Diastolic blood pressure 80 mm[Hg] LESLIE FROMMELT DO [facility] 12-10-2021 12:21-0500 Heart rate 98 /min LESLIE FROMMELT DO [facility] 12-10-2021 12:21-0500 Respiratory rate 16 /min LESLIE FROMMELT DO [facility] 12-10-2021 12:21-0500 Systolic blood pressure 179 mm[Hg] LESLIE FROMMELT DO [facility] Encounters Encounter Date Encounter Type Care Provider Facility Start: 06-04-2025 ambulatory Jack Bronson [facility] Facility :[facility] Start: 04-29-2025 End: 04-29-[address] Jack Wayne MD -[facility] Work Phone: Start: 04-29-2025 End: 04-29-2025 ambulatory No Primary Care Physician [facility] Work Phone: Start: 04-09-2025 ambulatory Jack Mollison Facility :[facility] Start: 04-09-2025 Non-patient / Non-visit Dr. Brinda antonio MD -[facility] Start: 04-09-2025 End: 04-09-2025 ambulatory No Primary Care Physician [facility] Work Phone: Start: 04-09-2025 End: 04-09-[address] Jack Wayne MD -Pulmonary Services/Neurology Work Phone: Start: 04-09-2025 End: 04-09-2025 ambulatory Jack Wayne Facility:[facility] Start: 02-28-2025 End: 02-28-[address] Jack Wayne MD -[facility] Work Phone: Start: 02-28-2025 End: 02-28-2025 ambulatory Jack Tone Facility:[facility] Start: 01-20-2025 End: 01-20-[address] Jack Wayne MD -[facility] Work Phone: Start: 01-20-2025 End: 01-20-2025 ambulatory Jack Mollmichelle Facility:[facility] Start: 01-15-2025 End: 01-15-2025 ambulatory Jack Bronson [facility] Facility:[facility] Start: 01-15-2025 End: 01-15-[address] Jack Wayne MD -Physical Therapy Work Phone: Start: 12-09-2024 End: 12-09-2024 ambulatory Jack Mollmichelle Facility:[facility] Start: 11-18-2024 End: 11-18-2024 ambulatory Jack Mollison Facility:[facility] Start: 09-16-2024 End: 09-16-2024 ambulatory [place]ison [facility] Start: 09-13-2024 End: 09-13-2024 ambulatory Jack Mollison [facility] Start: 09-10-2024 End: 09-10-2024 ambulatory Jack Mollison Facility:[facility] Start: 08-05-2024 End: 08-05-2024 ambulatory Jack Mollison [facility] Start: 07-26-2024 End: 07-26-2024 ambulatory Jack Mollison Facility:[facility] Start: 03-14-2022 End: 03-14-2022 Patient encounter procedure JACK Greenwood JESICA DO [facility] Start: 12-10-2021 End: 12-10-2021 Emergency department patient visit LESLIE HAMMJESSICAGiulia [facility] Procedures Date Procedure Procedure Detail Performing Clinician Start: 10-21-2020 Right shoulder skeletal muscle injury JACK JESICA DO History of repair of musculotendinous cuff of shoulder S/P right rotator cuff repair No Primary Care Physician None (qualifier value) ADE HAMMJESSICAGiulia DO Payers Date Payer Category Payer Self-pay 2019 Unknown [id number] Private Health Insurance [facility] [id number] Unknown [id number] 2.16.8 [id number] Unknown [id number] 2.16.8 [id number] Unknown [id number] 2.16.8 [id number] Unknown [id number] 2.16.8 [id number] Unknown [id number] 2.16.8 [id number] Unknown [id number] 2.16.8 [id number] Unknown [id number] 2.16.8 [id number] Unknown [id number] 2.16.8 [id number] Unknown [id number] 2.16.8 [id number] Unknown [id number] 2.16.8 [id number] Unknown [id number] 2.16.8 [id number] Unknown [id number] 2.16.8 [id number] Unknown [id number] 2.16.8 [id number] Unknown [id number] 2.16.8 [id number] Social History Date Type Detail Facility Start: 03-11-2022 End: 01-20-2025 Never smoked tobacco (finding) [facility] Sex Assigned At [facility] Start: 10-12-2020 Tobacco Use Tobacco Use [facility] Start: 1970 Sex Assigned At Female W [facility] Medical Equipment Procedure Code Equipment Code Equipment Origin al Text Equipment Identifier Dates ANCHOR,5.5MM BIO CORK 2 FDA Start: 10-21-2020 ANCHOR,5.5MM BIO CORK 2 FDA Start: 10-21-2020 FIBERTAPE AR-7535 FDA Start: 10-21-2020 FIBERTAPE AR-7535 FDA Start: 10-21-2020 SWIVELOCK,4.75 DOUBLE LOCK FDA Start: 10-21-2020 ANCHOR,5.5MM BIO CORK 2 FDA Start: 10-21-2020 ANCHOR,5.5MM BIO CORK 2 FDA Start: 10-21-2020 FIBERTAPE [id number] FDA Start: 10-21-2020 FIBERTAPE AR-7535 FDA Start: 10-21-2020 Maddie ENRIQUEZ.Carrie DOUBLE LOCK FDA Start: 10-21-2020 Clinical Notes 12-10-2021 to 04-29-2025 Note Date & Type Note Facility 04-29-2025 Progress note [facility] 04-29-2025 Progress note Note Date/Time April 29, 2025 11:39am [facility] [address] [place] [address] OFFICE VISIT Date of Service: 04/29/25 MR#: [id number] Acct: [id number] Name: KADI CALZADA Rep #: [id number] : 1970 Provider: Dr. Ramiro Wayne MD Age/Sex: 54/F [place] [facility] Status: Signed Intake Vital Signs 01/20/25 09:00 Height 5 ft 5 in Intake Visit Reasons: RIGHT SHOULDER Chief Complaint: EMG review Allergies No Known Allergies Allergy (Verified 04/29/25 10:59) Medications ?Medication ?Instructions ?Recorded ?Confirmed ?Type acetaminophen 650 mg 650 mg PO Q12H 02/28/25/02/28 History tablet,extended release (Tylenol 8 Hour) ibuprofen 200 mg capsule 600 mg PO Q6H PRN 02/28/25 0 04/29/25 History PFSH Medical History (Updated 04/29/25 @ 11:37 by Jack Wayne MD) Right carpal tunnel syndrome 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 Jack Wayne MD 04/29/25 0848. Part of today?s visit was documented by [ ], acting as scribe. KADI CALZADA is a 54 year old F here today for FU NCS for R CTS. [id number] [facility] hogshead filler. Patient has ongoing anterior and lateral shoulderpain worse with lifting worse at night. 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 Patient has some numbness in the hand mildly mostly over the 4th and 5th digits. Patient has undergone 6 months of conservative treatment including rounds of physical therapy as well as a cortisone injection without relief. They did have a debridement shoulder arthroscopy about 4 years ago that helped for about a year until he went back [facility]. Supplemental Info [facility] Pulmonary Services/Neurology [address] [place] [address] MR#: [id number] Acct: [id number] Name: KADI CALZADA Rep #: [id number] : 1970 54 From: Brinda Edgar MD Referring Dr: Jack Wayne MD Status: REG CLI Location: PSN Date: 04/09/25 Sex: F H NCS and/or EMG Patient Report Ordering Doctor: Jack Wayne DATE OF SERVICE: 04/09/25 Kadi presents for electrodiagnostic testing of the right upper limb. She reports numbness and tingling of the right hand and pain in the right arm. Electrodiagnostic findings: Right median motor nerve demonstrates prolonged latency with normal amplitude and conduction velocity. Normal right ulnar motorresponse, including conduction across the elbow. Normal right median and ulnar F?waves. Prolonged right median sensory latency at the wrist. Normal right ulnar and radial sensory responses. Needle EMG testing was performed the right upper limb. All muscles tested showed no evidence of denervation with normal motor unit action potentials. Electrodiagnostic impression: This is an abnormal study. 1. Electrodiagnostic findings suggestive of right-sided median mononeuropathy. This consistent with a mild right carpal tunnel syndrome. [facility] Imaging Services [address] [place] [address] Upper Ext Joint Only(Routine) MR#: [id number] Acct: [id number] Name: KADI CALZADA Rep #: [id number] : 1970 F 53 From: Fabricio Cabrera MD PCP: Care Physician,No Primary Status: REG CLI Study: Upper Ext Joint Only(Routine) Date of Exam: 09/10/24 Exam# [id number] Ordering Dr: Jack Wayne MD STUDY: MRI RIGHT SHOULDER REASON FOR EXAM: Female, 53 years old. Pain. TECHNIQUE: Standardized fat and water weighted pulse sequences were obtained in all 3 orthogonal planes. COMPARISON: Right shoulder MRI dated 02/14/2020. FINDINGS: There are postoperative changes related to prior rotator cuff repair surgery, with new anchors in the humeral head. There is supraspinatus, infraspinatus, and subscapularis tendinosis without a full-thickness tear. Normal teres minor tendon. There is minimal atrophy and fatty infiltration of the supraspinatus and infraspinatus muscles. Normal subscapularis muscle. Normal teres minor muscle. Normal glenohumeral articulation. Intact humeral head and visualized proximal humerus. Normal biceps labral complex. Normal intracapsular long biceps tendon. Normal labrum. Normal capsulo-ligamentous complex. Normal rotator interval. There is hypertrophic acromioclavicular arthrosis, with inferior osteophyte formation, with mild effacement of the supraspinatus myotendinous junction (coronal T2 series 6 images 12-14). There is a Type II morphology (curved), with a neutral orientation. There is trace subacromial-subdeltoid bursal fluid. Normal visualized coracohumeral and coracoacromial ligaments. Normal quadrilateral space. Normal axillary space. Normal deltoid muscle. Normal trapezius muscle. MRI/Upper Ext Joint Only(Routine) IMPRESSION: Supraspinatus, infraspinatus, and subscapularis tendinosis without a full-thickness rotator cuff tear. Minimal atrophy and fatty infiltration of the supraspinatus and infraspinatus muscles. Hypertrophic acromioclavicular arthrosis, with inferior osteophyte formation, with mild effacement of the supraspinatus myotendinous junction. Minimal subacromial-subdeltoid bursitis. Electronically Signed: Fabricio Cabrera MD at 12:28 EST , I independently reviewed the imaging. Concur with radiologist report. Coding Level of Care Code Off vis,est,level 4 Diagnoses Arthrosis of right acromioclavicular joint M19.011 Tendinosis of right rotator cuff M67.813 Right shoulder pain M25.511 Right carpal tunnel syndrome G56.01 Assessment and Plan Assessment and Plan (1) Arthrosis of right acromioclavicular joint: Status: Acute Plan: 54F with electrodiagnostic findings suggestive of right-sided median mononeuropathy. This consistent with a mild right carpal tunnel syndrome. (2) Tendinosis of right rotator cuff: Status: Acute Plan: 54 year old F here today for FU R shoulder pain, MRI showing tendinosis and ACJarthrosis, no tear. Work comp. Patient has undergone 6 months of conservative treatment including multiple rounds of physical therapy and cortisone injections. They had a positive response to surgery in the past for debridement. Full passive range of motion although the patient could have some capsular contracture and synovitis/capsulitis given the amount of pain with passive range of motion. Okay to continue on conservative management although patient is more in favor of surgery. Surgery would be in the form of right shoulder arthroscopy, debridement, possible capsular release, and subacromial decompression. Recovery for this is 3 to 6 months. They understood wished to go ahead with the operation we will proceed with getting insurance approval. Pros and cons risks and benefits were discussed with the patient including but not limited to infection, pain, stiffness, bleeding, damage to surrounding structures, neurovascular injury, recurrence or retear, failure or wear of hardware or fixation, instability, fracture, deep vein thrombosis and pulmonary embolism, anesthetic risks, , patient dissatisfaction, need for further surgery and other risks. Patient understood and wished to proceed with surgery,and signed the informed consent documentation. (3) Right shoulder pain: Status: Acute (4) Right carpal tunnel syndrome: Status: Acute Plan: 54-year-old female with right carpal tunnel syndrome. Electrodiagnostic findingssuggestive of right-sided median mononeuropathy. This consistent with a mild right carpal tunnel syndrome. Symptoms more so into the 4th and 5th digit. Being said counseled on diagnosis prognosis different treatment options we will start with nighttime splinting for the next 6 weeks to see if this is effective for the patient. Carpal Tunnel Syndrome (CTS) occurs when the median nerve, which runs through the wrist, becomes compressed. Treatment options vary based on the severity of the condition: Non-Surgical Treatments: Wrist Splinting: Wearing a splint at night to keep the wrist in a neutral position. Activity Modification: Avoiding repetitive wrist movements or adjusting work habits. Physical Therapy: Exercises to improve wrist and hand function. Medications: Anti-inflammatory drugs (NSAIDs) or corticosteroid injections to reduce swelling and pain. Surgical Treatment: Carpal Tunnel Release Surgery: A procedure where the ligament pressing on the median nerve is cut to relieve pressure. This is considered when non-surgical treatments are ineffective. Options are min-open or endoscopic. Ortho Exam General General: Yes no acute distress Neurologic: Yes alert and Yes oriented x3 Psychologic: Yes reasonable and appropriate Right Shoulder Skin/Wound: Yes CDI, Yes healed, No ecchymosis, No erythema and No swelling Testing: Positive Hawkin's, Neer's, Speed's, TTP Biceps, TTP AC Joint and empty can; Negative Drop Arm or scapular winging SHOULDER: active fe 40, passive 160, er 35. strength fe 4+, er 4 04/29/25 1139 <Electronically signed by Jack mora MD> Date _ Jack Wayne MD Cosigner Signature: Date (if applicable) CC: ~ [facility] Work Phone: 1(413) 655-198306-04-2025 Procedure note [facility] Pulmonary Services/Neurology [address] [place] [address] MR#: [id number] Acct: [id number] Name: KADI CALZADA #:[id number] : 1970 54 From: Brinda Edgar MD Referring Dr: Jack Wayne MD Sta tus: REG CLI Location: PSN Date: 04/09/25 Sex: F H NCS and/or EMG Patient Report Ordering Doctor: Jack Wayne DATE OF SERVICE: 04/09/25 Kadi presents for electrodiagnostic testing of the right upper limb. She reports numbness and tingling of the right hand and pain in the right arm. Electrodiagnostic findings: Right median motor nerve demonstrates prolonged latency with normal amplitude and conduction velocity. Normal right ulnar motorresponse, including conduction across the elbow. Normal right median and ulnar F?waves. Prolonged right median sensory latency at the wrist. Normal right ulnar and radial sensory responses. Needle EMG testing was performed the right upper limb.All muscles tested showed no evidence of denervation with normal motor unit action potentials. Electrodiagnostic impression: This is an abnormal study. 1. Electrodiagnostic findings suggestive of right-sided median mononeuropathy. This consistent witha mild right carpal tunnel syndrome. [facility] Neurology Neurology Interp Codes: 00709-05 Musc test done w/n test comp (interp) (1) and 70954-10 Nrv cndj tst 5-6 studies (interp) 04/09/25 1235 D> Date _ Brinda Edgar MD CC: Dr. Brinda Edgar MD; Dr. Jack Wayne MD; No Primary Care Physician ~ Date Dictated: 04/09/25 1234 Date Transcribed: 04/09/25 1234 Door Captain: AA Signed [facility]03-17-2025 Evaluation note* Diagnosis Onset Date Resolution Status Admit Date Arthrosis of right acromioclavicular joint acute January 202024 8:35am Right shoulder pain acute January 20, 2025 8:35am Tendinosis of right rotator cuff acu te January 20, 2025 8:35am Arthrosis of right acromioclavicular joint acute February 282024 10:43am Right shoulder pain acute February 28, 2025 10:43am Tendinosis of right rotator cuff acu te February 28, 2025 10:43am [facility] Work Phone: 1(730) 498-380803-17-2025 Evaluation note* Diagnosis Onset Date Resolution Status Admit Date Arthrosis of right acromioclavicular joint acute January 202024 8:35am Right shoulder pain acute January 20, 2025 8:35am Tendinosis of right rotator cuff acu te January 20, 2025 8:35am Arthrosis of right acromioclavicular joint acute February 282024 10:43am Right shoulder pain acute February 28, 2025 10:43am Tendinosis of right rotator cuff acu te February 28, 2025 10:43am Arthrosis of right acromioclavicular joint acute April 10:52am Right carpal tunnel syndrome acute April 29, 2025 10:52am Right shoulder pain acute April 29, 2025 10:52am Tendinosis of right rotator cuff acu te April 29, 2025 10:52am [facility] Work Phone: 1(900) 114-300602-04-2022 Hospital Discharge instructions Patient Education 12/10/2021 13:20:08 Asthma, Acute (Adult)([place]) Asma (adulto) El asma es francois enfermedad [...] e irritantes conocidos. Cuidados en la casa: [place] el medicamento que le recetaron exactamente las veces que le indicaron. Si tiene un inhalador de mano o un medicamento en aerosol para la respiraci n, no lo use m s de francois vez cada cuatro horas,cont ctese con joe proveedor de atenci n [...] fiebre tigre el ibuprofeno y el naproxeno. Hablecon joe proveedor de atenci n m dica [...] el asma. Si todav a no tiene francois, hable con joe proveedor de atenci n [...] los dedos se vuelven grises o azules 7912-3245 [employer]. [address] [place] [id number]. Todos los derechos reservados. Esta informaci n no pretende sustituir la atenci n m dica profesional. S lo joe m dico puede diagnosticar y tratar un problema de vipin. Follow Up Care 12/10/2021 12:17:26 With:GUILLERMO CLARK MD Address: [facility] [address] [place] [address]- When:2-4 days [facility] Evaluation + Plan note No data available for this section [facility] Evaluation + Plan note Future Appointments Appointment Date:03/18/2022 04:00:00 PM Scheduled Provider:JACK MOONEY DO Location:[facility] Appointment Type:PC OV Diagnostic Tests Pending * Vitamin B6 Level 03/14/22 [facility] Hospital Discharge instructions No data available for this section [facility] Progress note No data available for this section [facility] Reason for referral (narrative)No reason for referral [facility] Work Phone: Summary Purpose Family History No Family History Records FoundNo Family History Records Found Advance Directives No Advanced Directives Records FoundNo Advanced Directives Records Found Chief Complaint and Reason for Visit Chief Complaint Admit Date R ROTATOR CUFF RX HERE January 15, 2025 9:30am RIGHT SHOULDER January 20, 2025 8:3 5am RIGHT SHOULDER February 28, 2025 10: 43am RUE; Other specified disorders of tendon , rig April 09, 2025 9:41am RUE; Other specified disorders of tendon , rig April 09, 2025 12:34pm Reason for Visit Admit Date Arthrosis of right acromioclavicular thuan nt January 20, 2025 8:35am Right shoulder pain January 20, 2025 8:3 5am Tendinosis of right rotator cuff January 042024 8:35am Arthrosis of right acromioclavicular thuan nt February 28, 2025 10:43am Right shoulder pain February 28, 2025 10: 43am Tendinosis of right rotator cuff February 052024 10:43am Chief Complaint Admit Date R ROTATOR CUFF RX HERE January 15, 2025 9:30am RIGHT SHOULDER January 20, 2025 8:3 5am RIGHT SHOULDER February 28, 2025 10: 43am RUE; Other specified disorders of tendon , rig April 09, 2025 9:41am RUE; Other specified disorders of tendon , rig April 09, 2025 12:34pm RIGHT SHOULDER April 29, 2025 10:5 2am Reason for Visit Admit Date Arthrosis of right acromioclavicular thuan nt January 20, 2025 8:35am Right shoulder pain January 20, 2025 8:3 5am Tendinosis of right rotator cuff January 042024 8:35am Arthrosis of right acromioclavicular thuan nt February 28, 2025 10:43am Right shoulder pain February 28, 2025 10: 43am Tendinosis of right rotator cuff February 052024 10:43am Arthrosis of right acromioclavicular thuan nt April 29, 2025 10:52am Right carpal tunnel syndrome April 29, 2025 10:52am Right shoulder pain April 29, 2025 10:5 2am Tendinosis of right rotator cuff April 292024 10:52am Additional Source Comments Care Team (unrecognized sect ion and content) Team Status: Active Member Role Status Dates No Primary Care Physician Primary Care Provider Active Team Status: Inactive Member Role Status Dates No Primary Care Physician Primary Care Provider Active Start: January 15, 2025 End: January 15, 2025 Jack Wayne MD Attending Provider Active St art: January 15, 2025 End: January 15, 2025 Jack Wayne MD Referring Provider Active St art: January 15, 2025 End: January 15, 2025 Team Status: Inactive Member Role Status Dates No Primary Care Physician Primary Care Provider Active Start: January 20, 2025 End: January 20, 2025 No Primary Care Physician Referring Provider Active Start: January 20, 2025 End: January 20, 2025 Jack Wayne MD Attending Provider Active St art: January 20, 2025 End: January 20, 2025 Team Status: Inactive Member Role Status Dates No Primary Care Physician Primary Care Provider Active Start: February 28, 2025 End: February 28, 2025 No Primary Care Physician Referring Provider Active Start: February 28, 2025 End: February 28, 2025 Jack Wayne MD Attending Provider Active St art: February 28, 2025 End: February 28, 2025 Team Status: Inactive Member Role Status Dates No Primary Care Physician Primary Care Provider Active Start: April 09, 2025 End: April 09, 2025 Jack Wayne MD Attending Provider Active St art: April 09, 2025 End: April 09, 2025 Jack Wayne MD Referring Provider Active St art: April 09, 2025 End: April 09, 2025 Team Status: Active Member Role Status Dates No Primary Care Physician Primary Care Provider Active Start: April 09, 2025 Jack Wayne MD Referring Provider Active St art: April 09, 2025 Jack Wayne MD Other Provider Active Start: April 09, 2025 Dr. Brinda Edgar MD Attending Provider Active S tart: April 09, 2025 Team Status: Inactive Member Role Status Dates No Primary Care Physician Primary Care Provider Active Start: April 29, 2025 End: April 29, 2025 No Primary Care Physician Referring Provider Active Start: April 29, 2025 End: April 29, 2025 Jack Wayne MD Attending Provider Active St art: April 29, 2025 End: April 29, 2025 INFORMATION SOURCE (unrecogn ized section and content) DATE CREATED AUTHOR 03/24/2022 [facility] ([place]) DATE CREATED AUTHOR AUTHOR'S ORGANIZ ATION 06/13/2025 [facility] Goals (unrecognized section and content) Goals may be documented in a n alternate section FOR RECORDS PERTAINING TO PATIENTS WHO ARE [...] BE BASED ON THE PRIMARY CLINICAL RECORDS. [facility] provides no warranty or guarantee of the accuracy or completeness of information in this document.
[2025-07-31 19:00] VITALS: BP 128/76; PULSE 78; RESP 20; O2SAT 100
[2025-07-31 19:18] LABS: Troponin T High Sens 2 HR < 6 ng/L (<=14)
[2025-07-31 19:53] VITALS: BP 119/97; PULSE 67; RESP 16; TEMP 36.6; O2SAT 100
== END 2025-07-31 20:38 | disposition home or self-care (01) ==
PROVIDERS: Emergency Provider Student in an Organized Health Care Education/Training Program; Visit Provider Student in an Organized Health Care Education/Training Program
DX: R07.9 Chest pain, unspecified (principal); R06.00 Dyspnea, unspecified
CPT/HCPCS: 71046; 80048; 83880; 84484; 85025; 85379; 93005; 96374; 96376; 99285; A4216